=== PATIENT | male | born 1985 | race Caucasian/White ===

== ENCOUNTER 2021-08-11 13:41 | Emergency (ER) | payer SELFPAY ==
--- OUTSIDE RECORDS SUMMARY | 2021-08-11 13:46 | XMS REPORT | Continuity of Care Document ---
:1985 Author Organization [facility] t Address [address] Kapoor [address] [place] [address] Care Team Providers Name Role Phone Pcp, Does Not Have A Primary Care Physician Arcelia Attending Clinician Unavailable Karl Krueger Attending Clinician Unavailable Neelam Belcher MD Attending Clinician Chari Jose Attending Clinician Unavailable RICKEY Attending Clinician Unavailable Erik BOATENG Attending Clinician Kamilah BOATENG Attending Clinician NEELAM BELCHER Attending Clinician Unavailable Rickey BOATENG Attending Clinician Nate Attending Clinician Unavailable Physician, Primary or Family Admitting Clinician UnavailKarl Marsh Admitting Clinician Unavailable Jasbir Stiles Admitting Clinician Unavailable Payers Payer Name Policy Type Policy Number Effective Date Expiration Date S ource Problems Condition Condition Condition Status Onset Resolution Last Treating Co mments Source Name Details Category Date Date Treatment Clinician Date No known No known Disease Unive rs active active ity of problems problems [facility] Allergies, Adverse Reactions, Alerts Allergy Allergy Status Severity Reaction(s) Onset Inactive Treating Comm ents Source Name Type Date Date Clinician lisinopr DA Active SV 2020-0 [facility] il 4-02 Clear 00:00: [place] 00 [facility] isosorbi DA Active SV 2020-0 [facility] de 4-02 Clear 00:00: [place] 00 [facility] lisinopr DA Active SV COUGH 1-0 [facility] il 4-02 Clear 00:00: [place] 00 [facility] isosorbi DA Active SV AGITATION 1-0 [facility] de 4-02 Clear 00:00: [place] 00 [facility] ranolazi DA Active [place] HEADACHE 2020-0 [facility] ne 4-02 Clear 00:00: [place] 00 [facility] ranolazi DA Active WA 1-0 [facility] ne 4-02 Clear 00:00: [place] 00 [facility] lisinopr DA Active SV 2020-0 [facility] il 3-15 Clear 00:00: [place] 00 [facility] isosorbi DA Active SV 2020-0 [facility] de 3-15 Clear 00:00: [place] 00 [facility] ranolazi DA Active WA 2020-0 [facility] ne 3-15 Clear 00:00: [place] 00 [facility] lisinopr DA Active SV COUGH 2020-0 [facility] il 3-15 Clear 00:00: [place] 00 [facility] isosorbi DA Active SV AGITATION 2020-0 [facility] de 3-15 Clear 00:00: [place] 00 [facility] ranolazi DA Active [place] HEADACHE 2020-0 [facility] ne 3-15 Clear 00:00: [place] 00 [facility] Isosorbi Propensi Active Unknown - 2020-0 Patient Un sujit de ty to See comments 2-18 states he i ty of Mononitr adverse 00:00: has side [place] ate reaction 00 effects Medical s and cant Branch take medicatio n but didn't specify what side effects Lisinopr Propensi Active Cough 2020-0 Univer s il ty to 2-18 ity of adverse 00:00: [place] reaction 00 Medical s Branch Ranolazi Propensi Active Unknown - 2020-0 agitated U nivers ne ty to See comments 2-18 ity of adverse 00:00: [place] reaction 00 Medical s Branch ISOSORBI DRUG Active Unknown-Cmnt 2020-0 Un sujit DE INGREDI 2-18 ity of MONONITR 00:00: [place] ATE 00 Medical Branch LISINOPR DRUG Active COUGH 2020-0 Univers [place] INGREDI 2-18 ity of 00:00: [place] 00 Medical Branch RANOLAZI DRUG Active Unknown-Cmnt 2020-0 Un sujit NE INGREDI 2-18 ity of 00:00: [place] 00 Medical Branch lisinopr DA Active SV 2020-0 [facility] il 2-02 [place] 00:[facility]: e [facility] isosorbi DA Active SV 2020-0 [facility] de 2- [place] 00:00: e [facility] ranolazi DA Active [place] 2020-0 [facility] ne 2 [place] 00:00: e 00 [facility] lisinopr DA Active SV COUGH 2020-0 [facility] il - [place] 00:00: e 00 [facility] isosorbi DA Active SV AGITATION 2020-0 [facility] de 2 [place] 00:00: e 00 [facility] ranolazi DA Active [place] HEADACHE 2020-0 [facility] ne 04-11 [place] 00:00: e 00 [facility] Social History Social Habit Start Date Stop Date Quantity Comments Source Sex Assigned At [birth year] [facility] 00:00:00 00:00:00 Medical [place] Smoking Status Start Date Stop Date Source Unknown if ever smoked [facility] Medications Ordered Filled Start Stop Current Ordering Indication Dosage Frequency Signature Comments Components Source Medication Medication Date Date Medication? Clinician (SIG) Name Name hydrOXYzine 2020-0 Yes [id number] 25mg Take 1 Univers 25 mg 4-26 tablet by ity of tablet 00:00: mouth [place] 00 every 8 Medical (eight) Branch hours as needed for Itching. hydrOXYzine 0 Yes [id number] 25mg Take 1 Univers 25 mg 4-26 tablet by ity of tablet 00:00: mouth [place] 00 every 8 Medical (eight) Branch hours as needed for Itching. hydrOXYzine 2020-0 Yes [id number] 25mg Take 1 Univers 25 mg 4-26 tablet by ity of tablet 00:00: mouth [place] 00 every 8 Medical (eight) Branch hours as needed for Itching. Ustekinumab 2020-0 Yes 45mg inject 0.5 Univers 45 mg/0.5 3-08 mL under ity of mL SC 00:00: the skin [place] injection 00 every 12 Medica l (twelve) Branch weeks. Ustekinumab 2021-0 Yes 45mg inject 0.5 Univers 45 mg/0.5 3-08 mL under ity of mL SC 00:00: the skin [place] injection 00 every 12 Medica l (twelve) Branch weeks. Ustekinumab 2021-0 Yes 45mg inject 0.5 Univers 45 mg/0.5 3-08 mL under ity of mL SC 00:00: the skin [place] injection 00 every 12 Medica l (twelve) Branch weeks. clobetasoL 2021-0 Yes [id number] Apply to Univers 0.05 % 1-26 area(s) 2 ity of cream 00:00: (two) [place] 00 times Medical daily. Branch clobetasoL 2021-0 Yes [id number] Apply to Univers 0.05 % 1-26 area(s) 2 ity of external 00:00: (two) [place] solution 00 times Medical daily. Branch clobetasoL 2021-0 Yes [id number] Apply to Univers 0.05 % 1-26 area(s) 2 ity of cream 00:00: (two) [place] 00 times Medical daily. Branch clobetasoL 2021-0 Yes [id number] Apply to Univers 0.05 % 1-26 area(s) 2 ity of external 00:00: (two) [place] solution 00 times Medical daily. Branch clobetasoL 2021-0 Yes [id number] Apply to Univers 0.05 % 1-26 area(s) 2 ity of cream 00:00: (two) [place] 00 times Medical daily. Branch clobetasoL 2021-0 Yes [id number] Apply to Univers 0.05 % 1-26 area(s) 2 ity of external 00:00: (two) [place] solution 00 times Medical daily. Branch metoprolol 2020-0 Yes 25mg Take 25 mg U nivers succinate 8-21 by mouth ity of XL 25 mg 24 14:19: daily. [facility] hr tablet Medical Branch amLODIPine 2019-0 Yes 5mg Take 5 mg Un sujit 5 mg tablet 8-21 by mouth ity of 14:19: daily. [place] [address] Medical Branch clopidogreL 2020-0 Yes 75mg Take 75 mg Univers (PLAVIX) 75 8-21 by mouth ity of mg tablet 14:19: daily. [place] [address] Medical Branch aspirin 2019-0 Yes 81mg Take 81 mg Univ ers (LO-DOSE 8-21 by mouth ity of ASPIRIN) 81 14:19: daily. [place] mg EC 57 Medical tablet Branch omeprazole 2020-0 Yes 20mg Take 20 mg U nivers 20 mg 8-21 by mouth ity of capsule 14:19: daily. [place] [address] Medical Branch topiramate 2020-0 Yes 50mg Take 50 mg U nivers (TOPAMAX) 8-21 by mouth 2 ity of 50 mg 14:19: (two) [place] tablet 57 times Medical daily. Branch atorvastati 2020-0 Yes 80mg Take 80 mg Univers n 80 mg 8-21 by mouth ity of tablet 14:19: at [place] [address] bedtime. Medical Branch metoprolol 2020-0 Yes 25mg Take 25 mg U nivers succinate 8-21 by mouth ity of XL 25 mg 24 14:19: [place]. [place] hr tablet 57 [facility] amLODIPine 2020-0 Yes 5mg Take 5 mg Un sujit 5 mg tablet 8-21 by mouth ity of 14:19: daily. [place] [address] Medical Branch clopidogreL 2020-0 Yes 75mg Take 75 mg Univers (PLAVIX) 75 8-21 by mouth ity of mg tablet 14:19: daily. [place] [address] Medical Branch aspirin 2020-0 Yes 81mg Take 81 mg Univ ers (LO-DOSE 8-21 by mouth ity of ASPIRIN) 81 14:19: daily. [place] mg EC 57 Medical tablet Branch omeprazole 2020-0 Yes 20mg Take 20 mg U nivers 20 mg 8-21 by mouth ity of capsule 14:19: daily. [place] [address] Medical Branch topiramate 2020-0 Yes 50mg Take 50 mg U nivers (TOPAMAX) 8-21 by mouth 2 ity of 50 mg 14:19: (two) [place] tablet 57 times Medical daily. Branch atorvastati 2020-0 Yes 80mg Take 80 mg Univers n 80 mg 8-21 by mouth ity of tablet 14:19: at [place] [address] bedtime. Medical Branch metoprolol 2020-0 Yes 25mg Take 25 mg U nivers succinate 8-21 by mouth ity of XL 25 mg 24 14:19: daily. [place] hr tablet 57 [place] amLODIPine 2020-0 Yes 5mg Take 5 mg Un sujit 5 mg tablet 8-21 by mouth ity of 14:19: daily. [place] [address] Medical Branch clopidogreL 2020-0 Yes 75mg Take 75 mg Univers (PLAVIX) 75 8-21 by mouth ity of mg tablet 14:19: daily. [place] [address] Medical Branch aspirin 2020-0 Yes 81mg Take 81 mg Univ ers (LO-DOSE 8-21 by mouth ity of ASPIRIN) 81 14:19: [place]. [place] mg 57 [place] tablet Branch omeprazole 2020-0 Yes 20mg Take 20 mg U nivers 20 mg 8-21 by mouth ity of capsule 14:19: daily. [place] [address] Medical Branch topiramate 2020-0 Yes 50mg Take 50 mg U nivers (TOPAMAX) 8-21 by mouth 2 ity of 50 mg 14:19: (two) [place] tablet 57 times Medical daily. Branch atorvastati 2019-0 Yes 80mg Take 80 mg Univers n 80 mg 8-21 by mouth ity of tablet 14:19: at [place] [address] bedtime. Medical Branch Procedures Procedure Date / Time Performed Performing Clinician [facility] samantha [id number] 2019-05-23 00:00:00 BALPA [facility] [id number] 2019-04-16 00:00:00 PATSN [facility] [id number] 2019-04-16 00:00:00 PATSN [facility] [id number] 2019-04-16 00:00:00 PATSN [facility] [id number] 2019-04-16 00:00:00 [facility] Encounters Start End Encounter Admission Attending Care Care Encounter Source Date/Time Date/Time Type Type Clinicians Facility Department ID 2020-07-07 Inpatient EL Crist[facility] [id number] [facility] 12:30:00 [id number] [facility] 2020-07-06 Inpatient Cristian Paniagua [facility] DAYS [id number] [facility] 12:30:00 [id number] [facility] 2020-06-26 Inpatient Cristian [facility]aniagua [facility] RADI [id number] [facility] 10:00:00 [id number] [facility] 2020-06-09 Inpatient HCABM SARAN [id number] [facility] 21:32:00 [id number] [facility] 2019-05-23 Inpatient HCABM SARAN [id number] [facility] 21:44:00 [id number] [facility] 2019-04-11 Inpatient UR Pati, MARYAN [facility] [id number] [facility] 21:42:00 Lesa [facility] 2021-07-25 2021-07-25 Telephone Rosa Belcher [facility] [id number] Univers 00:00:00 00:00:00 Neelam MULTISPEC [id number] ity [id number] [id number] [facility] [address] [facility] 2021-05-29 2021-05-29 Telephone Rosa Belcher [facility] [id number] [facility] 00:00:00 00:00:00 Neelam MULTISPEC [id number] it[id number] [id number] [facility] AND [address] [facility] 2021-04-13 2021-04-13 Refill Rosa Belcher [facility] [id number] Univers 00:00:00 00:00:00 Neelam MULTISPEC [id number] it[id number] [id number] [facility] AND [address] [facility] 2021-01-12 2021-01-12 Emergency EM DALLIN Jose [facility] [id number] [facility] 15:37:00 18:11:[id number] [facility] 2021-01-12 2021-01-12 Emergency EM DALLIN Jose [facility] [id number] [facility] 15:37:00 18:11:[address] [facility] 2020-09-26 2020-09-26 Outpatient Jamshid LANG [facility] [id number] Univers 11:15:00 11:15:00 ANNEMARIE [id number] luther [facility] 2020-09-26 2020-09-26 Outpatient Jamshid LANG [facility] [id number] Univers 11:15:00 11:15:00 ANNEMARIE luther [facility] 2020-07-03 2020-07-03 Outpatient Cristian Paniagua HCACL LABO [id number] [facility] 19:57:00 19:57:00 [id number] [facility] 2020-07-03 2020-07-03 Outpatient EL Cristian Paniagua HCABM OPLA [id number] [facility] 10:30:00 10:30:00 [id number] [facility] 2020-06-28 2020-06-28 Yony Valencia [facility] [id number] 00:00:00 00:00:00 Kane DUARTEPEC [id number] IALTY [id number] [place] [id number] [place] 2020-05-15 2020-05-15 Telephone Rosa Belcher [facility] [id number] 00:00:00 00:00:00 Neelam DUARTEPEC [id number] IAL[place] [id number] [place] [id number] [facility] 2020-04-04 2020-04-04 Office Kamilah [facility] [id number] 11:27:57 11:42:56 Visit Grace DUARTEPEC [id number] [place] [id number] [place] [id number] [facility] [place] 2020-04-04 2020-04-04 Outpatient R [facility] [id number] Univers 11:15:00 11:15:00 [id number] [facility] 2020-04-04 2020-04-04 Outpatient R ROSA BELCHER [facility] [id number] Univers 11:15:00 11:15:00 [facility] 2020-02-25 2020-02-25 Yony Lang [facility] [id number] 00:00:00 00:00:00 Annemarie DUARTEPEC [id number] [place] [id number] [place] [id number] [facility] [place] 2020-02-25 2020-02-25 Telephone LALY Lang [id number] 00:00:00 00:00:00 Annemarie [facility] [id number] [place] [id number] 2020-01-24 2020-01-24 Outpatient R RICKEY, [facility] [id number] Univers 15:15:00 15:15:00 ANNEMARIE [id number] itberta o [facility] 2020-01-24 2020-01-24 Outpatient R RICKEY [facility] [id number] Univers 15:15:00 15:15:00 ANNEMARIE itberta o [facility] 2019-11-01 2019-11-01 Outpatient R [facility] [id number] Univers 14:45:00 14:45:00 [id number] ity [facility] 2019-10-29 2019-10-29 Outpatient R RICKEY [facility] [id number] Univers 16:00:00 16:00:00 ANNEMARIE theodore o [facility] 2019-10-29 2019-10-29 Outpatient R RICKEY, [facility] [id number] Univers 14:15:00 14:15:00 ANNEMARIE [id number] itberta o [facility] 2019-10-29 2019-10-29 Outpatient R RICKEY [facility] [id number] Univers 14:15:00 14:15:00 ANNEMARIE theodore o [facility] 2019-07-27 2019-07-27 Outpatient Jamshid LANG [facility] [id number] Univers 09:40:00 09:40:00 ANNEMARIE [id number] ity o [facility] 2019-07-27 2019-07-27 Outpatient R RICKEY [facility] [id number] Univers 09:40:00 09:40:00 ANNEMARIE itberta o [facility] 2019-05-24 2019-05-24 Outpatient HOSSEIN SlulivanHEATHER LABKerwin [id number] [facility] 15:40:00 15:40:00 Doug [id number] [facility] Results Test Description Test Time Test Comments Results Result Comments Source Novel Coronavirus 20182020-07-04 22:41:00 Test Item Value Reference Range Interpretation Comme nts Novel Coronavirus 2019 Negative Negative Posit summer results are indicative of the Inhouse (test code = presenc e [id number]-ByM-3 RNA, clinical [id number]) correlation wit h patient historyand other diagnosti c information is necessary to de terminepatient infection status. Positiv e results do not rule outbacterial in fection or co-infection with other viru ses. Negative results do not preclude SA RS-CoV-2 infection andshould not b e used as the sole basis for patient man agementdecisions. Negative result s must be combined with otherclinical o bservations, patient history, and ep idemiologicalinformation. Detection of SA RS-CoV-2 RNA may be affected bysamp le collection methods, storage conditi ons, and/or stageof infection. Renita l RNA mutations, vaccinations, a ntiviraltherapeutics, antibiotics, ch emotherapeutic orimmunosuppres lupillo drugs have not been evaluated for e ffectson detection. Results are for the identification of SARS-CoV-2 RNA usingreal-time (RT) polymerase gaurav n reaction (PCR) technologyfor t he qualitative detection of nucleic acid s from yhsOSFR-PrW-4 virus and diagn osis of SARS-CoV-2 virusinfection. It is an Emergency Use Authorization ( EUA) testauthorized by the U.S. FDA. Novel Coronavirus [id number] 22:40:00 Test Item Value Reference Range Interpretation Comments Novel Coronavirus Negative Negative Positive r esults are 2019 Inhouse (test indicativ e of the presence code = [id number]) ofSARS-CoV -2 RNA, clinical correlation wit h patient historyand othe r diagnostic info rmation is necessary to determinepatien t infection status. Positiv e results do not rule out bacterial infection or co -infection with other viru ses. Negative result s do not preclude SARS-C oV-2 infection andsh ould not be used as the kallie e basis for patient managementdecis ions. Negative result s must be combined with otherclinical observations, p atient history, and epidemiological information . Detection of SARS-CoV-2 RNA may be affe cted bysample collec tion methods, storag e conditions, and /or stageof infection. Renita l RNA mutations, vacc inations, antiviraltherap eutics, antibiotics, chemotherapeuti c orimmunosuppres lupillo drugs have not been e valuated for effectson d etection. Results are for the identification of SARS-CoV-2 RNA usingreal-time (RT) polymerase gaurav n reaction (PCR) technolog yfor the qualitative det ection of nucleic acids f rom ijtFYJB-GsT-3 v irus and diagnosis of SA RS-CoV-2 virusinfection. It is an Emergency Use Authorization ( EUA) testauthorized by the U.S. FDA. CBC W/AUTO [id number] 23:36:00 Test Item Value Reference Range Interpretation Comments WHITE BLOOD CELL (test code = 10.5 K/mm3 4.5-12.5 N WBC) RED BLOOD CELL (test code = 4.74 mill/mm3 4.0-5.8 N RBC) HEMOGLOBIN (test code = HGB) 14.7 gram/dL 13.0-17.5 N HEMATOCRIT (test code = HCT) 46.4 % 42.0-52.0 N MEAN CELL VOLUME (test code = 97.9 fL 80-98 N MCV) MEAN CELL HGB (test code = MCH) 31.0 picogram 27.0-33.0 N MEAN CELL HGB CONCETRATION 31.7 gram/dL 33.0-36.0 L (test code = MCHC) RED CELL DISTRIBUTION WIDTH 14.1 % 11.6-16.2 N (test code = RDW) RED CELL DISTRIBUTION WIDTH SD 51.0 fL 37.0-51.0 N (test code = RDW-SD) PLATELET COUNT (test code = 322 K/mm3 150-450 N PLT) MEAN PLATELET VOLUME (test code 11.0 fL 6.7-11.0 N = MPV) NEUTROPHIL % (test code = NT%) 72.9 % 39.0-69.0 H IMMATURE GRANULOCYTE % (test 0.3 % 0.0-5.0 N code = IG%) LYMPHOCYTE % (test code = LY%) 17.7 % 25.0-55.0 L MONOCYTE % (test code = MO%) 7.5 % 0.0-10.0 N EOSINOPHIL % (test code = EO%) 0.8 % 0.0-5.0 N BASOPHIL % (test code = BA%) 0.8 % 0.0-1.0 N NUCLEATED RBC % (test code = 0.0 % 0-0 N NRBC%) NEUTROPHIL # (test code = NT#) 7.64 K/mm3 1.8-7.7 N IMMATURE GRANULOCYTE # (test 0.03 x10 3/uL 0-0.03 N code = IG#) LYMPHOCYTE # (test code = LY#) 1.85 K/mm3 1.0-5.0 N MONOCYTE # (test code = MO#) 0.79 K/mm3 0-0.8 N EOSINOPHIL # (test code = EO#) 0.08 K/mm3 0.0-0.5 N BASOPHIL # (test code = BA#) 0.08 K/mm3 0.0-0.2 N NUCLEATED RBC # (test code = 0.00 K/mm3 0.0-0.1 N NRBC#) BASIC METABOLIC [id number] 15:09:00 Test Item Value Reference Range Interpretation Comments SODIUM (test code = 138 mmol/L 136-145 N NA) POTASSIUM (test code 4.2 mmol/L 3.5-5.1 N = K) CHLORIDE (test code 108.0 mmol/L 98-107 H = CL) CARBON DIOXIDE (test 27.0 mmol/L 21-32 N code = CO2) ANION GAP (test code 7.2 10-20 L = GAP) GLUCOSE (test code = 102 mg/dL 74-106 N GLU) BLOOD UREA NITROGEN 14 mg/dL 7-18 N (test code = BUN) GLOMERULAR > 60 mL/min See_Comment Estimated GFR b y FILTRATION RATE using Modifi ed MDRD (test code = GFR) formula.Ch ronic kidney disease is defined as eith er kidney damageor GFR <60 mL/min/1.73 m2 for >3 months. [Automated mess age] The system Need Fixed generated this result transmitted ref erence range: >=60. Th e reference range was not used to int erpret this result as normal/abnormal . CREATININE (test 1.00 mg/dL 0.7-1.3 N code = CREAT) BUN/CREATININE RATIO 13.7 10-20 N (test code = BUN/CREA) CALCIUM (test code = 8.4 mg/dL 8.5-10.1 L CA) - XR [id number] 11:12:00 [facility]Name: NAIF MAGANA : 1985 Sex: M FAX: Cristian Lira MD [phone] [place]: B St: PRE-------- Name: NAIF MAGANA [facility] : 1985 Age/S: 35/M [address] [facility] Unit #: [id number] Loc: [place] [address] Phys: Cristian Davidson MD Acct: [id number] Dis Date: Status: PRE [facility] PHONE #: [phone] Exam Date: 06/26/2020 1011 FAX #: [phone] Reason: GERD EXAMS: CPT CODE: [id number] XR ESOPHAGUS [id number] HISTORY: Gastroesophageal reflux disease. COMPARISON: None available. Location: [facility]. Esophagus distended well. Free passage of contrast through the esophagus. No obstructing or constricting lesions are noted. Free passage through the GE junction. No reflux is noted. No esophagitis is noted. The visualized stomach is unremarkable. Barium tablet was administered as well with free passage without obstruction through the esophagus and through the GE junction. Incidental note made of calcified right coronary artery. IMPRESSION: No obstructing or constricting lesions. Free passage of barium and barium tablet through the esophagus and through the GE junction without esophagitis. Incidental note made of a calcified right coronary artery. Cardiac evaluation wouldbe of value. Fluoroscopy time utilized was 1 minute and 22 images were obtained during the examination. [id number] Reported and signed by: Shaka Marks M.D. CC: Cristian Paniagua MD Technologist: RT Harley(R) Trnscrd Date/Time/By: 06/26/2020 (1112) : By: [email or web address] Orig Print D/T: S: 06/26/2020 (1119) PAGE 1 Signed Report- XR [id number] 11:12:00 [facility] 1985 Sex: M FAX: Cristian Lira MD [phone] [place]: B St: DEP-------- Name: NAIF MAGANA [facility] : 1985 Age/S: 35/M [facility]anna [facility] Unit #: [id number] Loc: [place] [address] Phys: Cristian Davidson MD Acct: [id number] Dis Date: Status: DEP CLI PHONE #: [phone] Exam Date: 06/26/2020 1011 FAX #: [phone] Reason: GERD EXAMS: CPT CODE: [id number] XR ESOPHAGUS 65354 HISTORY: Gastroesophageal reflux disease. COMPARISON: None available. Location: [facility]. Esophagus distended well. Free passage of contrast through the esophagus. No obstructing or constricting lesions are noted. Free passage through the GE junction. No reflux is noted. No esophagitis is noted. The visualized stomach is unremarkable. Barium tablet was administered as well with free passage without obstruction through the esophagus and through the GE junction. Incidental note made of calcified right coronary artery. IMPRESSION: No obstructing or constricting lesions. Free passage of barium and barium tablet through the esophagus and through the GE junction without esophagitis. Incidental note made of a calcified right coronary artery. Cardiac evaluation wouldbe of value. Fluoroscopy time utilized was 1 minute and 22 images were obtained during the examination. [id number] Reported and signed by: Shaka Marks M.D. CC: Cristian Paniagua MD Technologist: RT Harley(Jamshid) Trnscrd Date/Time/By: 06/26/2020 (1112) : By: [email or web address] Orig Print D/T: S: 06/26/2020 (1115) PAGE 1 Signed Report- CT ABD PELVIS [id number] 00:34:00 [facility]Name: NAIF MAGANA : 1985 Sex: M Name: NAIF MAGANA [facility] : 1985 Age/S: 35 / M [address] Unit #: [id number] Loc: [place] [address] Phys: Mary Gill MD Acct: [id number] Dis Date: Status: REG ER PHONE #: [phone] Exam Date: 06/10/202023 FAX #: [phone] Reason: epigastric ttp EXAMS: CPT CODE: [id number] CT ABD PELVIS W/CONT 39580 EXAM: - CT ABD PELVIS W/CONT INDICATION: 35 years -old Male with epigastric ttp TECHNIQUE: Contrast - IV contrast was given. No oral contrast was given Portal venous phase - abdomen and pelvis No delayed phase images were obtained. Reconstructions - coronal and sagittal planes Automated exposure reduction (Auto mA/Smart mA) was utilized in compliance with ACR Image Wisely COMPARISON: None FINDINGS: Statements: None. Thoracic: Included images of the lower chest demonstrate no abnormalities. Hepatobiliary: The liver is normal without focal lesion.Gallbladder is partially contracted limiting evaluation. No biliary dilation. Pancreas: Normal. Spleen: Normal. Adrenals: Normal. Genitourinary: The kidneys are normal. No evidence of hydronephrosis. Evaluation of the bladder is limited, but no obvious bladder abnormality is present. Gastrointestinal: No bowel obstruction or perienteric inflammation. The appendix is normal. Vascular: Atherosclerotic calcifications are seen within the aorta and branch vessels. Roge lópez/Soft Tissues: No acute osseous findings. No ventral hernias. Peritoneum/Other: No extraluminal fluid. PAGE 1 Signed Report (CONTINUED) Name: NAIF MAGANA [facility] : 1985 Age/S: 35 / M [address] Unit #: [id number] Loc: [place] [address] Phys: [facility] Gill [id number] Dis Date: Status: REG ER PHONE #: [phone] Exam Date: 06/10/202023 FAX #: [phone] Reason: epigastric ttp EXAMS: CPT CODE: [id number] CT ABD PELVIS W/CONT 17222 <Continued> IMPRESSION: 1. Evidence of bowel obstruction. No free air or abscess. No acute inflammatory process. at 0034 Reported and signed by: Brad Gallagher MD CC: Mary Gill MD Technologist:Guillaume Silver, RT(R)(CT) CTDI: DLP: Trnscb Date/Time: 06/10/2020 (33) [email or web address] Orig Print D/T: S: 06/10/2020 (7) PAGE 2 Signed ReportB-TYPE NATRIURETIC [id number] 23:34:00 Test Item Value Reference Range Interpretation Comments B-TYPE NATRIURETIC PEPTIDE (test 8.1 pgram/mL 0-100 N code = BNP) BASIC METABOLIC [id number] 23:34:00 Test Item Value Reference Range Interpretation Comments SODIUM (test code = 141 mmol/L 136-145 N NA) POTASSIUM (test code 3.8 mmol/L 3.5-5.1 N = K) CHLORIDE (test code 108.0 mmol/L 98-107 H = CL) CARBON DIOXIDE (test 25.0 mmol/L 21-32 N code = CO2) ANION GAP (test code 11.8 10-20 N = GAP) GLUCOSE (test code = 116 mg/dL 74-106 H GLU) BLOOD UREA NITROGEN 13 mg/dL 7-18 N (test code = BUN) GLOMERULAR > 60 mL/min See_Comment Estimated GFR b y FILTRATION RATE using Modifi ed MDRD (test code = GFR) formula.Ch ronic kidney disease is defined as eith er kidney damageor GFR <60 mL/min/1.73 m2 for >3 months. [Automated mess age] The system Need Fixed generated this result transmitted ref erence range: >=60. Th e reference range was not used to int erpret this result as normal/abnormal . CREATININE (test 1.10 mg/dL 0.7-1.3 N code = CREAT) BUN/CREATININE RATIO 11.8 10-20 N (test code = BUN/CREA) CALCIUM (test code = 9.9 mg/dL 8.5-10.1 N CA) HEPATIC FUNCTION [id number] 23:34:00 Test Item Value Reference Range Interpretation Comments TOTAL PROTEIN (test 7.7 gram/dL 6.4-8.2 N code = PROT) ALBUMIN (test code = 4.6 g/dL 3.4-5.0 N ALB) GLOBULIN (test code = 3.1 gram/dL 2.7-4.2 N GLOB) ALBUMIN/GLOBULIN RATIO 1.5 0.75-1.50 N (test code = A/G) BILIRUBIN TOTAL (test 0.40 mg/dL 0.0-1.0 N code = BILT) BILIRUBIN DIRECT (test < 0.10 mg/dL 0.0-0.20 N code = BILD) SGOT/AST (test code = 16 IUnit/L 15-37 N AST) SGPT/ALT (test code = 24 IUnit/L 12-78 N ALT) ALKALINE PHOSPHATASE 169 IUnit/L 45-117 H Note change in TOTAL (test code = reference range due ALKP) to change in reagent. [id number] 23:34:00 Test Item Value Reference Range Interpretation Comments LIPASE (test code = LIP) 42 U/L 12-57 N [id number] 23:34:00 Test Item Value Reference Range Interpretation Comments MAGNESIUM (test code = MAG) 2.1 mg/dL 1.8-2.4 N [id number] 23:34:00 Test Item Value Reference Range Interpretation Comments TROPONIN-I (test code = TROPI) < 0.006 ng/mL 0-0.045 N CBC W/O [id number] 23:21:00 Test Item Value Reference Range Interpretation Comments WHITE BLOOD CELL (test code = 11.3 K/mm3 4.5-12.5 N WBC) RED BLOOD CELL (test code = 4.80 mill/mm3 4.0-5.8 N RBC) HEMOGLOBIN (test code = HGB) 14.8 gram/dL 13.0-17.5 N HEMATOCRIT (test code = HCT) 45.2 % 42.0-52.0 N MEAN CELL VOLUME (test code = 94.2 fL 80-98 N MCV) MEAN CELL HGB (test code = MCH) 30.8 picogram 27.0-33.0 N MEAN CELL HGB CONCETRATION 32.7 gram/dL 33.0-36.0 L (test code = MCHC) RED CELL DISTRIBUTION WIDTH 13.7 % 11.6-16.2 N (test code = RDW) PLATELET COUNT (test code = 364 K/mm3 150-450 N PLT) MEAN PLATELET VOLUME (test code 10.7 fL 6.7-11.0 N = MPV) URINALYSIS [id number] 23:16:00 Test Item Value Reference Range Interpretation Comments UA COLOR (test code = COLU) Light-Yellow YELLOW UA APPEARANCE (test code = CLEAR CLEAR APPU) UA GLUCOSE DIPSTICK (test NEGATIVE mg/dL NEGATIVE code = DGLUU) UA BILIRUBIN DIPSTICK (test NEGATIVE mg/dL NEGATIVE code = BILU) UA KETONE DIPSTICK (test NEGATIVE mg/dL NEGATIVE code = KETU) UA SPECIFIC GRAVITY (test 1.020 1.001-1.035 code = SGU) UA BLOOD DIPSTICK (test Negative mg/dL NEGATIVE code = OZZY) UA PH DIPSTICK (test code = 7.0 5.0-8.0 ESHA) UA PROTEIN DIPSTICK (test NEGATIVE mg/dL NEGATIVE code = PROU) UA UROBILINIOGEN DIPSTICK Normal mg/dL NEGATIVE (test code = URO) UA NITRITE DIPSTICK (test NEGATIVE NEGATIVE code = ROCK) UA LEUKOCYTE ESTERASE W NEGATIVE Rosemary/uL NEGATIVE REFLEX (test code = LEUUR) UA WBC (test code = WBCU) 0-5 per HPF 0-5 UA RBC (test code = RBCU) 0-2 #/HPF 0-5 UA EPITHELIAL CELLS (test None seen per HPF FEW code = EPIU) UA BACTERIA (test code = NONE SEEN #/HPF NONE BACU) UA MUCUS (test code = MUCU) FEW #/LPF FEW UA AMORPHOUS SEDIMENT (test FEW #/LPF code = AMORU) Urine Source? Clean Catch- XR CHEST 1 [id number] 22:02:00 [facility] ([facility])Name: NAIF MAGANA : 1985 Sex: M FAX: Mary Avila [phone] [place]: St: REG-------- Name: NAIF MAGANA [facility] : 1985 Age/S: 35/M [address] [facility] Unit #: [id number] Loc: [place] [address] Phys: Mary Sanchez MD Acct: [id number] Dis Date: Status: REG ER PHONE #: [phone] Exam Date: 06/09/20202158 FAX #: [phone] Reason: CHEST PAIN EXAMS: CPT CODE: [id number] XR CHEST 1 V 83457 EXAM: Chest X-ray, 1 view; CLINICAL HISTORY: Chest pain; FINDINGS: The lungs are clear, no infiltrates, no edema; no effusions; no pneumothorax; normal cardiomediastinal silhouette. No significant change compared with a study from May 24, 2019; right coronary artery stent in place. IMPRESSION: No evidence of active cardiopulmonary disease. Location code: [facility] at 2201 Reported and signed by: Monty Byers M.D. CC: Mary Gill MD Technologist: RT Yaima(R Trnscrd Date/Time/By: 06/09/2020 (2201) : By: Benny Orig Print D/T: S: 06/09/2020 (2205) PAGE 1 Signed ReportANTI PHOSPHOLIPID [id number] 09:31:00 Test Item Value Reference Interpretation Comments Range PTT ACTIVATED 25.2 sec () This test has not been (test code = validated for APTT) monitoringunfra ctionated heparin therapy . aPTT-based therapeuticrang es for unfractionated heparin therapy have no t beenestablished . Consider ordering Hepari n anti-Xa(unfract ionated).Refer ence Range:18 y ears and older: 22.9 - 3 0.2 RVVT PATIENT 1.4 ratio () H Testing while t he patient is (test code = on anticoagulan t RVVTPAT) therapy,includi ng warfarin, dabigatran, or a direct Xa inhibitor mayca use a false positive result .Reference Range: 0.8 - 1.2 --DRVVT Screen Seconds: 48.4 H igh secReference Ra nge: <= 47.0 DRVVT Confirm S econds: 33.8 secDRVVT Ratio: 1.4 High ratioTesting wh ile the patient is on a nticoagulant therapy,includi ng warfarin, dabigatran, or a direct Xa inhibitor mayca use a false positive result .Reference Range: 0.8 - 1.2 --------Hexago nal Phospholipi d Neutral: 0 secThis value i s NEGATIVE.This i s a qualitative ass ay and is therefore repor ceasar aspositive for lupus antic oagulant or negative. Thequ antitative value is provid ed as an aid in diagnosis.Re ference Range: 0 - 11 P latelet Neutralization: 0.0 secReference Ra nge: 0.0 - 3.0This test wa s developed and its perform ance characteristics determined by [facility]. It has not been cleared or appr ovedby the Food and Drug A dministration. PTT LONG ACTING seconds LAC Interpre tation:Results (test code = are interpreted as PTTLA) indeterminate f or the presenceof a edmar pus anticoagulant ( LA). Only one phospholipiddep endent assay showed evidence of confirmation, w ith theDRVVT ratio falling j ust above the reference inter chris. Thistest may be falsely positive if the sample is c ollectedwhile the patient is on warfarin, direct Xa inhib itor, ordirect thrombin inhibi tor therapy. Only persistent LA meetlaboratory diagnostic criteria for antiphospholipi dsyndrome. To confirm or refu te the presence of an LA and todetermine per sistence, repeat testing in 12 or more weeksis recomme nded. Ideally, repeat testing should be performedin the absence of anticoagulant t herapy. All ARTHUR-basedanti phospholipid antibodies eval uated are normal. Pleasec ontact [employer] Coagul ation if further clarifi cation isneeded. AB 13 G units () Reference Range :<21 ANTI-PROTHROMBIN IGG (test code = APTABIGG) APS ABS IGG 0 GPS () Reference Range :<16Low (test code = Positive: 16 - 30Moderate APSIGG) Positive: 31 - 50High Positive: >50 APS ABS IGM 1 MPS () Reference Range :<22Low (test code = Positive: 22 - 35Moderate APSIGM) Positive: 36 - 50High Positive: >50 RLFH-0-DIDDX I < 10 SMU () The reference interval IGM (test code = reflects a 3SD or 99th GPIIGM) percentileinter chris, which is thought to repr esent a potentiallyclin ically significant res ult in accordance with theInternationa l Consensus Statement on e classificationc riteria for definitive anti phospholipid syndrome (APS). JThromb Eixt0368;4:295- 306.Reference Range:Negative: <33 OXVH-9-LAOVZ I < 10 SGU () The reference interval IGG (test code = reflects a 3SD or 99th GPIIGG) percentileinter chris, which is thought to repr esent a potentiallyclin ically significant res ult in accordance with theInternationa l Consensus Statement on th e classificationc riteria for definitive anti phospholipid syndrome (APS). JThromb Hikp2456;4:295- 306.Reference Range:Negative: <21 SXJO-6-HOPBF I < 10 SHAYLA () The reference interval IGA (test code = reflects a 3SD or 99th GPIIGA) percentileinter chris.Reference Range:Negative: <26 AB CARDIOLIPIN <10 APL () Reference Ran ge:Negative: IGA (test code = <12Indeterm inate: 12 - 20Low CARDIOAAB) to medium posit summer: >20 - 80High positive : >80 AB CARDIOLIPIN <10 GPL () Reference Ran ge:Negative: IGG (test code = <15Indeterm inate: 15 - 20Low CARDIOGAB) to medium posit summer: >20 - 80High positive : >80 AB CARDIOLIPIN <10 MPL () Reference Ran ge:Negative: IGM (test code = <13Indeterm inate: 13 - 20Low CARDIOMAB) to medium posit summer: >20 - 80High positive : >80 PLASMAFACTOR V [id number] 09:31:00 Test Item Value Reference Range Interpretation Comments FACTOR V () Result: Negativ e (no mutation MUTATION (test found)Factor V Leiden is a code = FAC5M) specific mutat ion (R506Q) in thefactor V gen e that is associated with an increased risk ofvenous t hrombosis. Factor V Leiden is mor e resistant toinactivation by activated protein C. As a result, factor Vpersists in th e circulation leading to a mi ldhypercoagulable state. The Leid en mutation accounts for 90 %- 95% of APC resistance. Fac tor V Leiden has been reportedin patients with deep vein throm bosis, pulmonary embolus,central retinal vein occlusion, cere bral sinus thrombosisand h epatic vein thrombosis. Oth er risk factors to beconsidered in the workup for venous thro mbosis include [id number] muta tion in the factor II (prot hrombin) gene,protein S and C deficiency, and antithrombi n deficiencies.An ticardiolipin antibody and edmar pus anticoagulant analysismay be appropriate for certain patient s, as well ashomocysteine levels. Contact your local LabC orp forinformation on how to order additional test ing if desired.Methodo logy:DNA analysis of the Factor V gene was performed byall khalida-specific PCR. The diagnostic sensitivity andspecificity is >99% for both. Molecular-based testing ishighly accurate, but a s in any laboratory test , diagnosticerror s may occur. All test results mu st be combined withclinical in formation for the most accurate interpretation. This test was developed and i ts performance characteristics determined by [facility]. It has not been cleared or approvedby [facility] Food and Drug Administration. References:Yadira Massey (1995). Clin Lab Med 16:169-186.Carmen Copeland, MS, PhD, Deanne Ring, PhDPerformed At : [employer] [address] [place] [address] [id number] Joe Bird MD Ph: [phone] PLASMAANTI PHOSPHOLIPID [id number] 20:06:00 Test Item Value Reference Interpretation Comments Range PTT ACTIVATED 25.2 sec () This test has not been (test code = validated for APTT) monitoringunfra ctionated heparin therapy . aPTT-based therapeuticrang es for unfractionated heparin therapy have no t beenestablished . Consider ordering Hepari n anti-Xa(unfract ionated).Refer ence Range:18 y ears and older: 22.9 - 3 0.2 RVVT PATIENT 1.4 ratio () H Testing while t he patient is (test code = on anticoagulan t RVVTPAT) therapy,includi ng warfarin, dabigatran, or a direct Xa inhibitor mayca use a false positive result .Reference Range:0.8 - 1.2 PTT LONG ACTING seconds (test code = PTTLA) AB 13 G units () Reference Range :<21 ANTI-PROTHROMBIN IGG (test code = APTABIGG) APS ABS IGG 0 GPS () Reference Range :<16Low (test code = Positive: 16 - 30Moderate APSIGG) Positive: 31 - 50High Positive: >50 APS ABS IGM 1 MPS () Reference Range :<22Low (test code = Positive: 22 - 35Moderate APSIGM) Positive: 36 - 50High Positive: >50 QQCS-6-ILDFY I < 10 SMU () The reference interval IGM (test code = reflects a 3SD or 99th GPIIGM) percentileinter chris, which is thought to repr esent a potentiallyclin ically significant res ult in accordance with theInternationa l Consensus Statement on th e classificationc riteria for definitive anti phospholipid syndrome (APS). JThromb Wfqm1165;4:295- 306.Reference Range:Negative: <33 GECQ-1-MSQIN I < 10 SGU () The reference interval IGG (test code = reflects a 3SD or 99th GPIIGG) percentileinter chris, which is thought to repr esent a potentiallyclin ically significant res ult in accordance with theInternationa l Consensus Statement on e classificationc riteria for definitive anti phospholipid syndrome (APS). JThromb Olun6880;4:295- 306.Reference Range:Negative: <21 COXS-2-IGUKF I < 10 SHAYLA () The reference interval IGA (test code = reflects a 3SD or 99th GPIIGA) percentileinter chris.Reference Range:Negative: <26 AB CARDIOLIPIN <10 APL () Reference Ran ge:Negative: IGA (test code = <12Indeterm inate: 12 - 20Low CARDIOAAB) to medium posit summer: >20 - 80High positive : >80 AB CARDIOLIPIN <10 GPL () Reference Ran ge:Negative: IGG (test code = <15Indeterm inate: 15 - 20Low CARDIOGAB) to medium posit summer: >20 - 80High positive : >80 AB CARDIOLIPIN <10 MPL () Reference Ran ge:Negative: IGM (test code = <13Indeterm inate: 13 - 20Low CARDIOMAB) to medium posit summer: >20 - 80High positive : >80 PLASMAFACTOR V [id number] 20:06:00 Test Item Value Reference Range Interpretation Comments FACTOR V MUTATION (test code = FAC5M) PLASMAANTI PHOSPHOLIPID [id number] 20:06:00 Test Item Value Reference Interpretation Comments Range PTT ACTIVATED 25.2 sec () This test has not been (test code = validated for APTT) monitoringunfra ctionated heparin therapy . aPTT-based therapeuticrang es for unfractionated heparin therapy have no t beenestablished . Consider ordering Hepari n anti-Xa(unfract ionated).Refer ence Range:18 y ears and older: 22.9 - 3 0.2 RVVT PATIENT 1.4 ratio () H Testing while t he patient is (test code = on anticoagulan t RVVTPAT) therapy,includi ng warfarin, dabigatran, or a direct Xa inhibitor mayca use a false positive result .Reference Range:0.8 - 1.2 PTT LONG ACTING seconds (test code = PTTLA) AB 13 G units () Reference Range :<21 ANTI-PROTHROMBIN IGG (test code = APTABIGG) APS ABS IGG 0 GPS () Reference Range :<16Low (test code = Positive: 16 - 30Moderate APSIGG) Positive: 31 - 50High Positive: >50 APS ABS IGM 1 MPS () Reference Range :<22Low (test code = Positive: 22 - 35Moderate APSIGM) Positive: 36 - 50High Positive: >50 UBPT-7-WGRXF I < 10 SMU () The reference interval IGM (test code = reflects a 3SD or 99th GPIIGM) percentileinter chris, which is thought to repr esent a potentiallyclin ically significant res ult in accordance with theInternationa l Consensus Statement on th e classificationc riteria for definitive anti phospholipid syndrome (APS). JThromb Ivfy1576;4:295- 306.Reference Range:Negative: <33 BNUP-7-GSGCG I < 10 SGU () The reference interval IGG (test code = reflects a 3SD or 99th GPIIGG) percentileinter chris, which is thought to repr esent a potentiallyclin ically significant res ult in accordance with theInternationa l Consensus Statement on th e classificationc riteria for definitive anti phospholipid syndrome (APS). JThromb Bptf1995;4:295- 306.Reference Range:Negative: <21 YRCU-8-KZVZS I < 10 SHAYLA () The reference interval IGA (test code = reflects a 3SD or 99th GPIIGA) percentileinter chris.Reference Range:Negative: <26 AB CARDIOLIPIN <10 APL () Reference Ran ge:Negative: IGA (test code = <12Indeterm inate: 12 - 20Low CARDIOAAB) to medium posit summer: >20 - 80High positive : >80 AB CARDIOLIPIN <10 GPL () Reference Ran ge:Negative: IGG (test code = <15Indeterm inate: 15 - 20Low CARDIOGAB) to medium posit summer: >20 - 80High positive : >80 AB CARDIOLIPIN <10 MPL () Reference Ran ge:Negative: IGM (test code = <13Indeterm inate: 13 - 20Low CARDIOMAB) to medium posit summer: >20 - 80High positive : >80 PLASMAFACTOR V [id number] 20:06:00 Test Item Value Reference Range Interpretation Comments FACTOR V () Result: Negativ e (no mutation MUTATION (test found)Factor V Leiden is a code = FAC5M) specific mutat ion (R506Q) in thefactor V gen e that is associated with an increased risk ofvenous t hrombosis. Factor V Leiden is mor e resistant toinactivation by activated protein C. As a result, factor Vpersists in th e circulation leading to a mi ldhypercoagulable state. The Leid en mutation accounts for 90 %- 95% of APC resistance. Fac tor V Leiden has been reportedin patients with deep vein throm bosis, pulmonary embolus,central retinal vein occlusion, cere bral sinus thrombosisand h epatic vein thrombosis. Oth er risk factors to beconsidered in the workup for venous thro mbosis include [id number] muta tion in the factor II (prot hrombin) gene,protein S and C deficiency, and antithrombi n deficiencies.An ticardiolipin antibody and edmar pus anticoagulant analysismay be appropriate for certain patient s, as well ashomocysteine levels. Contact your local Lab[facility] orp forinformation on how to order additional test ing if desired.Methodo logy:DNA analysis of the Factor V gene was performed byall khalida-specific PCR. The diagnostic sensitivity andspecificity is >99% for both. Molecular-based testing ishighly accurate, but a s in any laboratory test , diagnosticerror s may occur. All test results mu st be combined withclinical in formation for the most accurate interpretation. This test was developed and i ts performance characteristics determined by [facility]. It has not been cleared or approvedby [facility] Food and Drug Administration. References:Yadira Massey (1995). Clin Lab Med 16:169-186.Carmen Copeland, MS, PhD, Deanne Ring, PhDPerformed At : [employer] [address] [place] [address] [id number] Joe Bird MD Ph: [phone] PLASMALUPUS ANTICOAGULANT [id number] 12:16:00 Test Item Value Reference Range Interpretation Comments PROTHROMBIN TIME TEST NOT 9.0-14.0 PATIENT (test code = PERFORMED PTP) seconds INTERNATIONAL NORMAL TEST NOT 0.8-1.2 RATIO (test code = PERFORMED INR) PT 1:2 MIX (test 42.2 sec 0.0-55.0 Dilute Prot hrombin code = PTMIX2) Time(dPT): 42 .2 sec (0.0 - 55.0)dPT Confirm Ratio: 1.11 Ratio (0.00 - 1 .40) RVVT PATIENT (test 43.8 sec 0.0-47.0 code = RVVTPAT) RVVT PATIENT MIX TEST NOT (test code = PERFORMED RVVTPATM) RVVT PATIENT CONFIRM TEST NOT (test code = PERFORMED RVVTPATMC) PTT LONG ACTING 34.7 sec 0.0-51.9 (test code = PTTLA) HEXAGONAL PHASE TEST NOT PHOSPHOLIPID (test PERFORMED code = HEXPHAS) THROMBIN TIME (test 18.1 sec 0.0-23.0 Test per formed at: code = TT) [facility] [address] [place] [address] LUPUS ANTICOAGULANT SEE REFERENCE Lupus R eflex PANEL (test code = REPORT Interpret ationComme LUPPT) nt: No lupus anticoagulant w as detected. IS PATIENT ON ANTICOAGULANTS? NPROTEIN C [id number] 12:16:00 Test Item Value Reference Range Interpretation Comments PROTEIN C ANTIGENIC 103 % 60-150 Performe d At: BN [facility] (test code = PROTCAG) [id number] [place], [place] [id number] ra Andre BOATENG Ph:[phone] 4 IS PATIENT ON ANTICOAGULANTS? NPROTEIN S [id number] 12:16:00 Test Item Value Reference Range Interpretation Comments PROTEIN S TOTAL 100 % 60-150 This test wa s developed and its (test code = performance PROTSTOT) characteristics determined by [facility]. It has not been cleared orapproved by [facility] Food and Drug Administration. PROTEIN S FUNC 72 % 63-140 Protein S act ivity may be falsely (test code = increased (mask ing anabnormal, PROTSFN) low result) in patients receiving direct Xainhibi tor (e.g., rivaroxaban, ap ixaban, edoxaban) or adirect thro mbin inhibitor (e.g., dabigatr an) anticoagulanttr eatment due to assay interfere nce by these drugs.Performed At: [facility] [id number] Sanjai MD Ph:[phone] PROTEIN S FREE 104 % 57-157 This test was developed and its (test code = performance PROTSF) characteristics determined by [facility]. It has not been cleared orapproved by [facility] [employer] and Drug Administration. IS PATIENT ON ANTICOAGULANTS? NLUPUS ANTICOAGULANT [id number] 17:07:00 Test Item Value Reference Range Interpretation Comments PROTHROMBIN TIME PATIENT seconds 9.0-14.0 (test code = PTP) INTERNATIONAL NORMAL 0.8-1.2 RATIO (test code = INR) PT 1:2 MIX (test code = 42.2 sec 0.0-55.0 PTMIX2) RVVT PATIENT (test code = 43.8 sec 0.0-47.0 RVVTPAT) RVVT PATIENT MIX (test code = RVVTPATM) RVVT PATIENT CONFIRM (test code = RVVTPATMC) PTT LONG ACTING (test 34.7 sec 0.0-51.9 code = PTTLA) HEXAGONAL PHASE PHOSPHOLIPID (test code = HEXPHAS) THROMBIN TIME (test code 18.1 sec 0.0-23.0 Kayleigh t performed at: = TT) [facility] [address] [place] [address] LUPUS ANTICOAGULANT PANEL (test code = LUPPT) IS PATIENT ON ANTICOAGULANTS? NPROTEIN C [id number] 17:07:00 Test Item Value Reference Range Interpretation Comments PROTEIN C ANTIGENIC 103 % 60-150 Performe d At: [facility] (test code = PROTCAG) [id number] [place], [place] [id number] ra Andre BOATENG Ph:[phone] 4 IS PATIENT ON ANTICOAGULANTS? NPROTEIN S [id number] 17:07:00 Test Item Value Reference Range Interpretation Comments PROTEIN S TOTAL 100 % 60-150 This test wa s developed and its (test code = performance PROTSTOT) characteristics determined by [facility]. It has not been cleared orapproved by [facility] Food and Drug Administration. PROTEIN S FUNC 72 % 63-140 Protein S act ivity may be falsely (test code = increased (mask ing anabnormal, PROTSFN) low result) in patients receiving direct Xainhibi tor (e.g., rivaroxaban, ap ixaban, edoxaban) or adirect thro mbin inhibitor (e.g., dabigatr an) anticoagulanttr eatment due to assay interfere nce by these drugs.Performed At: [facility] [id number] Powell MD Ph:[phone] PROTEIN S FREE 104 % 57-157 This test was developed and its (test code = performance PROTSF) characteristics determined by [facility]. It has not been cleared orapproved by [employer] Food and Drug Administration. IS PATIENT ON ANTICOAGULANTS? NLUPUS ANTICOAGULANT [id number] 16:37:00 Test Item Value Reference Range Interpretation Comments PROTHROMBIN TIME PATIENT seconds 9.0-14.0 (test code = PTP) INTERNATIONAL NORMAL 0.8-1.2 RATIO (test code = INR) PT 1:2 MIX (test code = 42.2 sec 0.0-55.0 PTMIX2) RVVT PATIENT (test code = 43.8 sec 0.0-47.0 RVVTPAT) RVVT PATIENT MIX (test code = RVVTPATM) RVVT PATIENT CONFIRM (test code = RVVTPATMC) PTT LONG ACTING (test 34.7 sec 0.0-51.9 code = PTTLA) PTT LONG ACTING INCUB MIX (test code = PTTLAMI) HEXAGONAL PHASE PHOSPHOLIPID (test code = HEXPHAS) THROMBIN TIME (test code 18.1 sec 0.0-23.0 Kayleigh t performed at: = TT) [facility] [address] [place] [address] LUPUS ANTICOAGULANT PANEL (test code = LUPPT) IS PATIENT ON ANTICOAGULANTS? NPROTEIN C [id number] 16:37:00 Test Item Value Reference Range Interpretation Comments PROTEIN C ANTIGENIC (test code = % PROTCAG) IS PATIENT ON ANTICOAGULANTS? NPROTEIN S [id number] 16:37:00 Test Item Value Reference Range Interpretation Comments PROTEIN S TOTAL 100 % 60-150 This test wa s developed and its (test code = performance PROTSTOT) characteristics determined by [facility]. It has not been cleared orapproved by t he Food and Drug Administration. PROTEIN S FUNC 72 % 63-140 Protein S act ivity may be falsely (test code = increased (mask ing anabnormal, PROTSFN) low result) in patients receiving direct Xainhibi tor (e.g., rivaroxaban, ap ixaban, edoxaban) or adirect thro mbin inhibitor (e.g., dabigatr an) anticoagulanttr eatment due to assay interfere nce by these drugs.Performed At: [facility] [id number] Powell MD Ph:[phone] PROTEIN S FREE 104 % 57-157 This test was developed and its (test code = performance PROTSF) characteristics determined by [facility]. It has not been cleared orapproved by [facility] Food and Drug Administration. IS PATIENT ON ANTICOAGULANTS? NLUPUS ANTICOAGULANT [id number] 16:37:00 Test Item Value Reference Range Interpretation Comments PROTHROMBIN TIME PATIENT seconds 9.0-14.0 (test code = PTP) INTERNATIONAL NORMAL 0.8-1.2 RATIO (test code = INR) PT 1:2 MIX (test code = 42.2 sec 0.0-55.0 PTMIX2) RVVT PATIENT (test code = 43.8 sec 0.0-47.0 RVVTPAT) RVVT PATIENT MIX (test code = RVVTPATM) RVVT PATIENT CONFIRM (test code = RVVTPATMC) PTT LONG ACTING (test 34.7 sec 0.0-51.9 code = PTTLA) HEXAGONAL PHASE PHOSPHOLIPID (test code = HEXPHAS) THROMBIN TIME (test code 18.1 sec 0.0-23.0 Kayleigh t performed at: = TT) [facility] [address] [place] [address] LUPUS ANTICOAGULANT PANEL (test code = LUPPT) IS PATIENT ON ANTICOAGULANTS? NPROTEIN C [id number] 16:37:00 Test Item Value Reference Range Interpretation Comments PROTEIN C ANTIGENIC (test code = % PROTCAG) IS PATIENT ON ANTICOAGULANTS? NPROTEIN S [id number] 16:37:00 Test Item Value Reference Range Interpretation Comments PROTEIN S TOTAL 100 % 60-150 This test wa s developed and its (test code = performance PROTSTOT) characteristics determined by [facility]. It has not been cleared orapproved by [facility] [employer] and Drug Administration. PROTEIN S FUNC 72 % 63-140 Protein S act ivity may be falsely (test code = increased (mask ing anabnormal, PROTSFN) low result) in patients receiving direct Xainhibi tor (e.g., rivaroxaban, ap ixaban, edoxaban) or adirect thro mbin inhibitor (e.g., dabigatr an) anticoagulanttr eatment due to assay interfere nce by these drugs.Performed At: [facility] [id number] Powell MD Ph:[phone] PROTEIN S FREE 104 % 57-157 This test was developed and its (test code = performance PROTSF) characteristics determined by [facility]. It has not been cleared orapproved by [facility] Food and Drug Administration. IS PATIENT ON ANTICOAGULANTS? NLUPUS ANTICOAGULANT [id number] 16:08:00 Test Item Value Reference Range Interpretation Comments PROTHROMBIN TIME PATIENT seconds 9.0-14.0 (test code = PTP) INTERNATIONAL NORMAL 0.8-1.2 RATIO (test code = INR) PT 1:2 MIX (test code = 42.2 sec 0.0-55.0 PTMIX2) RVVT PATIENT (test code = 43.8 sec 0.0-47.0 RVVTPAT) RVVT PATIENT MIX (test code = RVVTPATM) RVVT PATIENT CONFIRM (test code = RVVTPATMC) PTT LONG ACTING (test 34.7 sec 0.0-51.9 code = PTTLA) PTT LONG ACTING MIX (test code = PTTLAM) PTT LONG ACTING INCUB MIX (test code = PTTLAMI) HEXAGONAL PHASE PHOSPHOLIPID (test code = HEXPHAS) THROMBIN TIME (test code 18.1 sec 0.0-23.0 Kayleigh t performed at: = TT) [facility] [address] [place] [address] LUPUS ANTICOAGULANT PANEL (test code = LUPPT) IS PATIENT ON ANTICOAGULANTS? NPROTEIN C [id number] 16:08:00 Test Item Value Reference Range Interpretation Comments PROTEIN C ANTIGENIC (test code = % PROTCAG) IS PATIENT ON ANTICOAGULANTS? NPROTEIN S [id number] 16:08:00 Test Item Value Reference Range Interpretation Comments PROTEIN S TOTAL 100 % 60-150 This test wa s developed and its (test code = performance PROTSTOT) characteristics determined by [facility]. It has not been cleared orapproved by [facility] Food and Drug Administration. PROTEIN S FUNC 72 % 63-140 Protein S act ivity may be falsely (test code = increased (mask ing anabnormal, PROTSFN) low result) in patients receiving direct Xainhibi tor (e.g., rivaroxaban, ap ixaban, edoxaban) or adirect thro mbin inhibitor (e.g., dabigatr an) anticoagulanttr eatment due to assay interfere nce by these drugs.Performed At: [facility] [id number] Powell MD Ph:[phone] PROTEIN S FREE 104 % 57-157 This test was developed and its (test code = performance PROTSF) characteristics determined by [facility]. It has not been cleared orapproved by [facility] [employer] and Drug Administration. IS PATIENT ON ANTICOAGULANTS? NLUPUS ANTICOAGULANT [id number] 15:09:00 Test Item Value Reference Range Interpretation Comments PROTHROMBIN TIME PATIENT (test code seconds 9.0-14.0 = PTP) INTERNATIONAL NORMAL RATIO (test 0.8-1.2 code = INR) PT 1:2 MIX (test code = PTMIX2) SECONDS RVVT PATIENT (test code = RVVTPAT) RVVT PATIENT MIX (test code = RVVTPATM) RVVT PATIENT CONFIRM (test code = RVVTPATMC) PTT LONG ACTING (test code = PTTLA) seconds PTT LONG ACTING MIX (test code = PTTLAM) PTT LONG ACTING INCUB MIX (test code = PTTLAMI) HEXAGONAL PHASE PHOSPHOLIPID (test code = HEXPHAS) THROMBIN TIME (test code = TT) seconds LUPUS ANTICOAGULANT PANEL (test code = LUPPT) IS PATIENT ON ANTICOAGULANTS? NPROTEIN C [id number] 15:09:00 Test Item Value Reference Range Interpretation Comments PROTEIN C ANTIGENIC (test code = % PROTCAG) IS PATIENT ON ANTICOAGULANTS? NPROTEIN S [id number] 15:09:00 Test Item Value Reference Range Interpretation Comments PROTEIN S TOTAL 100 % 60-150 This test wa s developed and its (test code = performance PROTSTOT) characteristics determined by [facility]. It has not been cleared orapproved by [facility] Food and Drug Administration. PROTEIN S FUNC 72 % 63-140 Protein S act ivity may be falsely (test code = increased (mask ing anabnormal, PROTSFN) low result) in patients receiving direct Xainhibi tor (e.g., rivaroxaban, ap ixaban, edoxaban) or adirect thro mbin inhibitor (e.g., dabigatr an) anticoagulanttr eatment due to assay interfere nce by these drugs.Performed At: [facility] [id number] Sanjai MD Ph:[phone] PROTEIN S FREE 104 % 57-157 This test was developed and its (test code = performance PROTSF) characteristics determined by [facility]. It has not been cleared orapproved by [facility] Food and Drug Administration. IS PATIENT ON ANTICOAGULANTS? NANTITHROMBIN III (ATIII)2019-05-27 01:06:00 Test Item Value Reference Range Interpretation Comments ANTITHROMBIN III 92 % 75-135 Direct Xa i nhibitor (ATIII) (test code = anticoa gulants such as AT3) rivaroxaban,api xaban and edoxaban will l ead to spuriously elevatedantithr ombin activity levels possibly masking a deficiency.Perf ormed At: [facility] [id number] ra Andre BOATENG Ph:[phone] [id number] 07:44:00 Test Item Value Reference Range Interpretation Comments GLYCOSYLATED HEMOGLOBIN 5.5 % HbA1 ERICKA RASHEED DIAGNOSIS: (HA1C) (test code = HbA1C GLYHGB) (%) ----- ----- Diab etic >6.4Prediabetes 5.7 - 6.4Normal <5.7 ESTIMATED AVERAGE 111 MG/DL GLUCOSE (test code = EAG) BLOOD GIVEN TO RUSTY MCCOY @ 0712 FOR ADD ONV.LAB.PM 05/26/19711BIL [id number] 07:43:00 Test Item Value Reference Range Interpretation Comments PHOSPHORUS (test code = PHOS) 2.4 mg/dL 2.5-4.9 L BLOOD GIVEN TO RUSTYUVALDO MCCOY TO ADD ON @ 0712V.LAB.PM 05/26/19 0712IGNACIO ZULUAGA [id number] WANTS CANCELLBASIC METABOLIC [id number] 02:55:00 Test Item Value Reference Range Interpretation Comments SODIUM (test code = 144 mmol/L 136-145 N NA) POTASSIUM (test code 3.9 mmol/L 3.5-5.1 N = K) CHLORIDE (test code = 112.0 mmol/L 98-107 H CL) CARBON DIOXIDE (test 26.0 mmol/L 21-32 N code = CO2) ANION GAP (test code 9.9 10-20 L = GAP) GLUCOSE (test code = 96 mg/dL 74-106 N GLU) BLOOD UREA NITROGEN 8 mg/dL 7-18 N (test code = BUN) GLOMERULAR FILTRATION > 60 mL/min >=60 Estima ceasar GFR by RATE (test code = using Sheila fied MDRD GFR) formula.Chronic kidney disease is defined as [facility] er kidney damageor GFR <60 mL/min/1.73 m2 for >3 months. CREATININE (test code 1.00 mg/dL 0.7-1.3 N = CREAT) BUN/CREATININE RATIO 8.0 10-20 L (test code = BUN/CREA) CALCIUM (test code = 9.0 mg/dL 8.5-10.1 N CA) [id number] 02:55:00 Test Item Value Reference Range Interpretation Comments MAGNESIUM (test code = MAG) 2.2 mg/dL 1.8-2.4 N BASIC METABOLIC [id number] 02:49:00 Test Item Value Reference Range Interpretation Comments SODIUM (test code = NA) 144 mmol/L 136-145 N POTASSIUM (test code = K) 3.9 mmol/L 3.5-5.1 N CHLORIDE (test code = CL) 112.0 mmol/L 98-107 H CARBON DIOXIDE (test code = CO2) mmol/L 21-32 ANION GAP (test code = GAP) 10-20 GLUCOSE (test code = GLU) mg/dL 74-106 BLOOD UREA NITROGEN (test code = mg/dL 7-18 BUN) GLOMERULAR FILTRATION RATE (test mL/min >=60 code = GFR) CREATININE (test code = CREAT) mg/dL 0.7-1.3 BUN/CREATININE RATIO (test code 10-20 = BUN/CREA) CALCIUM (test code = CA) mg/dL 8.5-10.1 [id number] 02:49:00 Test Item Value Reference Range Interpretation Comments MAGNESIUM (test code = MAG) mg/dL 1.8-2.4 CBC W/O [id number] 02:43:00 Test Item Value Reference Range Interpretation Comments WHITE BLOOD CELL (test code = 10.4 K/mm3 4.5-12.5 N WBC) RED BLOOD CELL (test code = 4.55 mill/mm3 4.0-5.8 N RBC) HEMOGLOBIN (test code = HGB) 12.7 gram/dL 13.0-17.5 L HEMATOCRIT (test code = HCT) 39.4 % 42.0-52.0 L MEAN CELL VOLUME (test code = 86.6 fL 80-98 N MCV) MEAN CELL HGB (test code = MCH) 27.9 picogram 27.0-33.0 N MEAN CELL HGB CONCETRATION 32.2 gram/dL 33.0-36.0 L (test code = MCHC) RED CELL DISTRIBUTION WIDTH 14.2 % 11.6-16.2 N (test code = RDW) PLATELET COUNT (test code = 285 K/mm3 150-450 N PLT) MEAN PLATELET VOLUME (test code 11.2 fL 6.7-11.0 H = MPV) BASIC METABOLIC [id number] 03:10:00 Test Item Value Reference Range Interpretation Comments SODIUM (test code = 144 mmol/L 136-145 N NA) POTASSIUM (test code 4.1 mmol/L 3.5-5.1 N = K) CHLORIDE (test code = 112.0 mmol/L 98-107 H CL) CARBON DIOXIDE (test 26.0 mmol/L 21-32 N code = CO2) ANION GAP (test code 10.1 10-20 N = GAP) GLUCOSE (test code = 94 mg/dL 74-106 N GLU) BLOOD UREA NITROGEN 10 mg/dL 7-18 N (test code = BUN) GLOMERULAR FILTRATION > 60 mL/min >=60 Estima ceasar GFR by RATE (test code = using Sheila fied MDRD GFR) formula.Chronic kidney disease is defined as eith er kidney damageor GFR <60 mL/min/1.73 m2 for >3 months. CREATININE (test code 1.00 mg/dL 0.7-1.3 N = CREAT) BUN/CREATININE RATIO 10.0 10-20 N (test code = BUN/CREA) CALCIUM (test code = 8.4 mg/dL 8.5-10.1 L CA) [id number] 03:10:00 Test Item Value Reference Range Interpretation Comments MAGNESIUM (test code = MAG) 2.1 mg/dL 1.8-2.4 N BASIC METABOLIC [id number] 03:00:00 Test Item Value Reference Range Interpretation Comments SODIUM (test code = NA) 144 mmol/L 136-145 N POTASSIUM (test code = K) 4.1 mmol/L 3.5-5.1 N CHLORIDE (test code = CL) 112.0 mmol/L 98-107 H CARBON DIOXIDE (test code = CO2) mmol/L 21-32 ANION GAP (test code = GAP) 10-20 GLUCOSE (test code = GLU) mg/dL 74-106 BLOOD UREA NITROGEN (test code = mg/dL 7-18 BUN) GLOMERULAR FILTRATION RATE (test mL/min >=60 code = GFR) CREATININE (test code = CREAT) mg/dL 0.7-1.3 BUN/CREATININE RATIO (test code 10-20 = BUN/CREA) CALCIUM (test code = CA) mg/dL 8.5-10.1 [id number] 03:00:00 Test Item Value Reference Range Interpretation Comments MAGNESIUM (test code = MAG) mg/dL 1.8-2.4 CBC W/O [id number] 02:58:00 Test Item Value Reference Range Interpretation Comments WHITE BLOOD CELL (test code = 9.9 K/mm3 4.5-12.5 N WBC) RED BLOOD CELL (test code = 3.93 mill/mm3 4.0-5.8 L RBC) HEMOGLOBIN (test code = HGB) 11.2 gram/dL 13.0-17.5 L HEMATOCRIT (test code = HCT) 34.3 % 42.0-52.0 L MEAN CELL VOLUME (test code = 87.3 fL 80-98 N MCV) MEAN CELL HGB (test code = MCH) 28.5 picogram 27.0-33.0 N MEAN CELL HGB CONCETRATION 32.7 gram/dL 33.0-36.0 L (test code = MCHC) RED CELL DISTRIBUTION WIDTH 14.2 % 11.6-16.2 N (test code = RDW) PLATELET COUNT (test code = 243 K/mm3 150-450 N PLT) MEAN PLATELET VOLUME (test code 11.6 fL 6.7-11.0 H = MPV) URINALYSIS [id number] 19:00:00 Test Item Value Reference Range Interpretation Comments UA COLOR (test code = COLU) Light-Yellow YELLOW UA APPEARANCE (test code = CLEAR CLEAR APPU) UA GLUCOSE DIPSTICK (test NEGATIVE mg/dL NEGATIVE code = DGLUU) UA BILIRUBIN DIPSTICK (test NEGATIVE mg/dL NEGATIVE code = BILU) UA KETONE DIPSTICK (test code NEGATIVE mg/dL NEGATIVE = KETU) UA SPECIFIC GRAVITY (test 1.037 1.001-1.035 code = SGU) UA BLOOD DIPSTICK (test code Negative mg/dL NEGATIVE = OZZY) UA PH DIPSTICK (test code = 6.0 5.0-8.0 ESHA) UA PROTEIN DIPSTICK (test NEGATIVE mg/dL NEGATIVE code = PROU) UA UROBILINIOGEN DIPSTICK Normal mg/dL NEGATIVE (test code = URO) UA NITRITE DIPSTICK (test NEGATIVE NEGATIVE code = ROCK) UA LEUKOCYTE ESTERASE W NEGATIVE Rosemary/uL NEGATIVE REFLEX (test code = LEUUR) UA WBC (test code = WBCU) 0-5 per HPF 0-5 UA RBC (test code = RBCU) 0-2 #/HPF 0-5 UA EPITHELIAL CELLS (test FEW per HPF FEW code = EPIU) UA BACTERIA (test code = FEW #/HPF NONE A BACU) UA MUCUS (test code = MUCU) FEW #/LPF FEW Urine Source? Clean CatchDRUGS OF ABUSE SCREEN [id number] 19:00:00 Test Item Value Reference Range Interpretation Comments URN COCAINE (test NEGATIVE <300 ng/mL code = COCAURN) URN CANNABINOIDS NEGATIVE <50 ng/mL (test code = CANNABURN) URN AMPHETAMINE (test POSITIVE <1000 ng/mL A This t est provides only a code = AMPHETURN) preliminar y test result. A morespecific alternate chemical method must be used in order t oobtain a confirmed oliver tical result. Gas chromatography/ mass spectrometry (G C/MS) is thepreferred co nfirmatory method. Other chemical confirmationmet hods are available. Cli nical consideration a nd professional ju dgment should be appli ed to any drug of abusete st result, particularly wh en preliminary pos itive resultsare used.Unconfirme d screening resul ts must not be used fornon-medical purposes (e.g., employme nt testing, legalt esting). URN BARBITURATE (test NEGATIVE <200 ng/mL code = BARBITURN) URN BENZODIAZEPINE POSITIVE <200 ng/mL A This test provides only a (test code = preliminary kayleigh t result. BENZOURN) A morespecific alternate chemical method must be used in order t oobtain a confirmed oliver tical result. Gas chromatography/ mass spectrometry (G C/MS) is thepreferred co nfirmatory method. Other chemical confirmationmet hods are available. Cli nical consideration a nd professional ju dgment should be appli ed to any drug of abusete st result, particularly wh en preliminary pos itive resultsare used.Unconfirme d screening resul ts must not be used fornon-medical purposes (e.g., employme nt testing, legalt esting). URN OPIATES (test POSITIVE <300 ng/mL A This test provides only a code = OPIATURN) preliminary test result. A morespecific alternate chemical method must be used in order t oobtain a confirmed oliver tical result. Gas chromatography/ mass spectrometry (G C/MS) is thepreferred co nfirmatory method. Other chemical confirmationmet hods are available. Cli nical consideration a nd professional ju dgment should be appli ed to any drug of abusete st result, particularly wh en preliminary pos itive resultsare used.Unconfirme d screening resul ts must not be used fornon-medical purposes (e.g., employme nt testing, legalt esting). URN PHENCYCLIDINE NEGATIVE <25 ng/mL (PCP) (test code = PHENCURN) URN METHADONE (test NEGATIVE <300 ng/mL code = METHAURN) Urine Source? Clean CatchURINALYSIS [id number] 17:41:00 Test Item Value Reference Range Interpretation Comments UA COLOR (test code = COLU) Light-Yellow YELLOW UA APPEARANCE (test code = CLEAR CLEAR APPU) UA GLUCOSE DIPSTICK (test NEGATIVE mg/dL NEGATIVE code = DGLUU) UA BILIRUBIN DIPSTICK (test NEGATIVE mg/dL NEGATIVE code = BILU) UA KETONE DIPSTICK (test code NEGATIVE mg/dL NEGATIVE = KETU) UA SPECIFIC GRAVITY (test 1.037 1.001-1.035 code = SGU) UA BLOOD DIPSTICK (test code Negative mg/dL NEGATIVE = OZZY) UA PH DIPSTICK (test code = 6.0 5.0-8.0 ESHA) UA PROTEIN DIPSTICK (test NEGATIVE mg/dL NEGATIVE code = PROU) UA UROBILINIOGEN DIPSTICK Normal mg/dL NEGATIVE (test code = URO) UA NITRITE DIPSTICK (test NEGATIVE NEGATIVE code = ROCK) UA LEUKOCYTE ESTERASE W NEGATIVE Rosemary/uL NEGATIVE REFLEX (test code = LEUUR) UA WBC (test code = WBCU) 0-5 per HPF 0-5 UA RBC (test code = RBCU) 0-2 #/HPF 0-5 UA EPITHELIAL CELLS (test FEW per HPF FEW code = EPIU) UA BACTERIA (test code = FEW #/HPF NONE A BACU) UA MUCUS (test code = MUCU) FEW #/LPF FEW Urine Source? Clean CatchDRUGS OF ABUSE SCREEN [id number] 17:41:00 Test Item Value Reference Range Interpretation Comments URN COCAINE (test code = COCAURN) <300 ng/mL URN CANNABINOIDS (test code = <50 ng/mL CANNABURN) URN AMPHETAMINE (test code = AMPHETURN) <1000 ng/mL URN BARBITURATE (test code = BARBITURN) <200 ng/mL URN BENZODIAZEPINE (test code = <200 ng/mL BENZOURN) URN OPIATES (test code = OPIATURN) <300 ng/mL URN PHENCYCLIDINE (PCP) (test code = <25 ng/mL PHENCURN) URN METHADONE (test code = METHAURN) <300 ng/mL Urine Source? Clean CatchURINALYSIS [id number] 17:28:00 Test Item Value Reference Range Interpretation Comments UA COLOR (test code = COLU) Light-Yellow YELLOW UA APPEARANCE (test code = CLEAR CLEAR APPU) UA GLUCOSE DIPSTICK (test NEGATIVE mg/dL NEGATIVE code = DGLUU) UA BILIRUBIN DIPSTICK (test NEGATIVE mg/dL NEGATIVE code = BILU) UA KETONE DIPSTICK (test code NEGATIVE mg/dL NEGATIVE = KETU) UA SPECIFIC GRAVITY (test 1.037 1.001-1.035 code = SGU) UA BLOOD DIPSTICK (test code Negative mg/dL NEGATIVE = OZZY) UA PH DIPSTICK (test code = 6.0 5.0-8.0 ESHA) UA PROTEIN DIPSTICK (test NEGATIVE mg/dL NEGATIVE code = PROU) UA UROBILINIOGEN DIPSTICK Normal mg/dL NEGATIVE (test code = URO) UA NITRITE DIPSTICK (test NEGATIVE NEGATIVE code = ROCK) UA LEUKOCYTE ESTERASE W NEGATIVE Rosemary/uL NEGATIVE REFLEX (test code = LEUUR) UA WBC (test code = WBCU) per HPF 0-5 UA RBC (test code = RBCU) per HPF 0-5 UA EPITHELIAL CELLS (test per HPF Few code = EPIU) UA BACTERIA (test code = per HPF NONE BACU) Urine Source? Clean CatchDRUGS OF ABUSE SCREEN [id number] 17:28:00 Test Item Value Reference Range Interpretation Comments URN COCAINE (test code = COCAURN) <300 ng/mL URN CANNABINOIDS (test code = <50 ng/mL CANNABURN) URN AMPHETAMINE (test code = AMPHETURN) <1000 ng/mL URN BARBITURATE (test code = BARBITURN) <200 ng/mL URN BENZODIAZEPINE (test code = <200 ng/mL BENZOURN) URN OPIATES (test code = OPIATURN) <300 ng/mL URN PHENCYCLIDINE (PCP) (test code = <25 ng/mL PHENCURN) URN METHADONE (test code = METHAURN) <300 ng/mL Urine Source? Clean [id number] 17:06:00 Test Item Value Reference Range Interpretation Comments GLYCOSYLATED HEMOGLOBIN 5.8 % HbA1 ERICKA RASHEED DIAGNOSIS: (HA1C) (test code = HbA1C GLYHGB) (%) ----- ----- Diab etic >6.4Prediabetes 5.7 - 6.4Normal <5.7 ESTIMATED AVERAGE 120 MG/DL GLUCOSE (test code = EAG) PROTHROMBIN [id number] 07:30:00 Test Item Value Reference Range Interpretation Comments PROTHROMBIN TIME 12.8 seconds 9.0-14.0 N PATIENT (test code = PTP) INTERNATIONAL NORMAL 1.1 0.8-1.2 N The the rapeutic range RATIO (test code = for oral INR) anticoagulant t herapy formost indicat ions is an internati onal normalized rati o (INR)of between 2.0 and 3.0. The recommended therapeutic INR range for various cli nical situations is l isted below: Clinical Situat ion INR range Pulmonary embol ism treatment (2.0-3.0)Venou s thrombosis treatmentVenous thrombosis prophylaxis (hi gh risk surgery)Prevent ion of systemic emboli sm from: A cute myocardial infa rction Valvula r heart disease Atrial fibrilla tion Mechanical pros thetic heart valves (2.5-3.5) IS PATIENT ON ANTICOAGULANTS? YLIST ANTICOAGULANTS INTEGRILINTHROMBOPLASTIN TIME [id number] 07:30:00 Test Item Value Reference Range Interpretation Comments THROMBOPLASTIN TIME PARTIAL 31.6 seconds 25.0-36.5 N (test code = PTT) IS PATIENT ON ANTICOAGULANTS? YLIST ANTICOAGULANTS INTEGRILINCOMPREHENSIVE METABOLIC [id number] 04:09:00 Test Item Value Reference Range Interpretation Comments SODIUM (test code = 141 mmol/L 136-145 N NA) POTASSIUM (test code = 4.0 mmol/L 3.5-5.1 N K) CHLORIDE (test code = 109.0 mmol/L 98-107 H CL) CARBON DIOXIDE (test 27.0 mmol/L 21-32 N code = CO2) ANION GAP (test code = 9.0 10-20 L GAP) GLUCOSE (test code = 107 mg/dL 74-106 H GLU) BLOOD UREA NITROGEN 14 mg/dL 7-18 N (test code = BUN) GLOMERULAR FILTRATION > 60 mL/min >=60 Estima ceasar GFR by RATE (test code = GFR) using Modified MDRD formula.Chronic kidney disease is defined as [facility] er kidney damageor GFR <60 mL/min/1.73 m2 for >3 months. CREATININE (test code 1.00 mg/dL 0.7-1.3 N = CREAT) BUN/CREATININE RATIO 14.0 10-20 N (test code = BUN/CREA) TOTAL PROTEIN (test 6.4 gram/dL 6.4-8.2 N code = PROT) ALBUMIN (test code = 3.3 g/dL 3.4-5.0 L ALB) GLOBULIN (test code = 3.1 gram/dL 2.7-4.2 N GLOB) ALBUMIN/GLOBULIN RATIO 1.1 0.75-1.50 N (test code = A/G) CALCIUM (test code = 8.2 mg/dL 8.5-10.1 L CA) BILIRUBIN TOTAL (test 0.30 mg/dL 0.0-1.0 N code = BILT) SGOT/AST (test code = 110 IUnit/L 15-37 H AST) SGPT/ALT (test code = 37 IUnit/L 12-78 N ALT) ALKALINE PHOSPHATASE 124 IUnit/L 45-117 H Note change in TOTAL (test code = reference range due ALKP) to change in reagent. LIPID PROFILE (CORONARY RISK)2019-05-24 04:09:00 Test Item Value Reference Range Interpretation Comments TRIGLYCERIDES (test 146 mg/dL 20-150 N code = TRIG) CHOLESTEROL (test code 189 mg/dL 0-200 N = CHOL) CHOLESTEROL/HDL RATIO 5.0 RATIO 0-4.9 H RISK A SSOCIATED WITH (test code = CHOLHDL) CHOL/H DL RATIOS: Risk M jazmyn Female1/[address] A[address] RAGE 3.43 3.27AVERAGE 4.97 4.4 41X AVERAGE 9.[address] RAGE 23.39 11.04 REFERENCE VALUE IS RELATED TO RISK LEVELS ASRECOMMENDED B Y THE YOBANI. HEART, MICKEY G, AND BLOOD INST. HDL CHOLESTEROL (test 34 mg/dL 40-60 L code = HDL) LIPOPROTEIN LDL (test 133 mg/dL 100-129 H RN PER MEAGHAN, CONTACT code = LDL) PHYSICIAN IMMED IATELY IF THIS IS A [facility] [place], AMI OR CAROTID STENOSIS PATIEN T WHEN THE LDL >100 ([address] OCCURENCE, THIS ADMISSION)===== ======= ======= ======= ===Reference In terval: mg/dL mmol/L-------- ------- ------- ------- Optimal <100 <2.6Near/above optimal 100-12 9 2.6-3.3Borderl ine High 130-159 3.4-4.1High 160 -189 4.1-4.9Very High >=190 >=4.9========= This LDL result is a direct measurement.=== ====== CBC W/AUTO [id number] 03:45:00 Test Item Value Reference Range Interpretation Comments WHITE BLOOD CELL (test code = 14.0 K/mm3 4.5-12.5 H WBC) RED BLOOD CELL (test code = 4.12 mill/mm3 4.0-5.8 N RBC) HEMOGLOBIN (test code = HGB) 11.9 gram/dL 13.0-17.5 L HEMATOCRIT (test code = HCT) 35.9 % 42.0-52.0 L MEAN CELL VOLUME (test code = 87.1 fL 80-98 N MCV) MEAN CELL HGB (test code = MCH) 28.9 picogram 27.0-33.0 N MEAN CELL HGB CONCETRATION 33.1 gram/dL 33.0-36.0 N (test code = MCHC) RED CELL DISTRIBUTION WIDTH 14.3 % 11.6-16.2 N (test code = RDW) RED CELL DISTRIBUTION WIDTH SD 45.6 fL 37.0-51.0 N (test code = RDW-SD) PLATELET COUNT (test code = 274 K/mm3 150-450 N PLT) MEAN PLATELET VOLUME (test code 11.3 fL 6.7-11.0 H = MPV) NEUTROPHIL % (test code = NT%) 78.0 % 39.0-69.0 H IMMATURE GRANULOCYTE % (test 0.4 % 0.0-5.0 N code = IG%) LYMPHOCYTE % (test code = LY%) 12.7 % 25.0-55.0 L MONOCYTE % (test code = MO%) 8.1 % 0.0-10.0 N EOSINOPHIL % (test code = EO%) 0.4 % 0.0-5.0 N BASOPHIL % (test code = BA%) 0.4 % 0.0-1.0 N NUCLEATED RBC % (test code = 0.0 % 0-0 N NRBC%) NEUTROPHIL # (test code = NT#) 10.96 K/mm3 1.8-7.7 H IMMATURE GRANULOCYTE # (test 0.06 x10 3/uL 0-0.03 H code = IG#) LYMPHOCYTE # (test code = LY#) 1.78 K/mm3 1.0-5.0 N MONOCYTE # (test code = MO#) 1.13 K/mm3 0-0.8 H EOSINOPHIL # (test code = EO#) 0.05 K/mm3 0.0-0.5 N BASOPHIL # (test code = BA#) 0.05 K/mm3 0.0-0.2 N NUCLEATED RBC # (test code = 0.00 K/mm3 0.0-0.1 N NRBC#) MANUAL DIFF REQUIRED (test code NO = MDIFF) - XR CHEST 1 [id number] 01:14:00 FAX: Mary Avila [phone] [place]: [address]: ADM Name: NAIF MAGANA [facility] : 1985 Age/S: 34/M [address] Unit#: [id number] Loc: [place] [address] Phys: Mary Gill MD Acct: [id number] Dis Date: Status: ADM IN PHONE #: [phone] Exam Date: 05/24/2019 0106 FAX #: [phone] Reason: CHEST PAIN EXAMS: CPT CODE: [id number] XR CHEST 1 V [id number] EXAM: - XR CHEST 1 V HISTORY: Chest pain. COMPARISON: April 12, 2019. FINDINGS: Single AP view of the chest is provided. Heart size and vascularity are within normal limits. The lungs are clear of focal consolidation. No effusion, pneumothorax, or acute osseous abnormality. Thereis no significant interval change. IMPRESSION: No radiographic evidence of acute cardiopulmonary process. [id number] Reported and signed by: Hakeem Odonnell MD CC: Mary Gill MD Technologist: Lissy Ventura Date/Time/By: 05/24/2019 (0114) : By: [email or web address] Orig Print D/T: S: 05/24/2019 (0118) PAGE 1 Signed ReportCOAGULATION TIME [id number] 23:16:00 Test Item Value Reference Range Interpretation Comments COAGULATION TIME ACTIVATED (test 248 seconds 62.8-88.0 H code = ACT) COAGULATION TIME [id number] 23:00:00 Test Item Value Reference Range Interpretation Comments COAGULATION TIME ACTIVATED (test 203 seconds 62.8-88.0 H code = ACT) PROTHROMBIN [id number] 22:47:00 Test Item Value Reference Range Interpretation Comments PROTHROMBIN TIME 13.2 seconds 9.0-14.0 N PATIENT (test code = PTP) INTERNATIONAL NORMAL 1.1 0.8-1.2 N The the rapeutic range RATIO (test code = for oral INR) anticoagulant t herapy formost indicat ions is an internati onal normalized rati o (INR)of between 2.0 and 3.0. The recommended therapeutic INR range for various cli nical situations is l isted below: Clinical Situat ion INR range Pulmonary embol ism treatment (2.0-3.0)Venou s thrombosis treatmentVenous thrombosis prophylaxis (hi gh risk surgery)Prevent ion of systemic emboli sm from: A cute myocardial infa rction Valvula r heart disease Atrial fibrilla tion Mechanical pros thetic heart valves (2.5-3.5) IS PATIENT ON ANTICOAGULANTS? NTHROMBOPLASTIN TIME [id number] 22:47:00 Test Item Value Reference Range Interpretation Comments THROMBOPLASTIN TIME > 400.0 seconds 25.0-36.5 HH Resul ts called PARTIAL (test code = to PRU8 625 by PTT) V.LAB.QD 05/23/19 2246Critical results verifie d and read back b y Nurse? YES IS PATIENT ON ANTICOAGULANTS? NB-TYPE NATRIURETIC [id number] 22:41:00 Test Item Value Reference Range Interpretation Comments B-TYPE NATRIURETIC PEPTIDE 6.68 pgram/mL 0-100 N (test code = BNP) BASIC METABOLIC [id number] 22:22:00 Test Item Value Reference Range Interpretation Comments SODIUM (test code = 138 mmol/L 136-145 N NA) POTASSIUM (test code 3.4 mmol/L 3.5-5.1 L = K) CHLORIDE (test code = 106.0 mmol/L 98-107 N CL) CARBON DIOXIDE (test 21.0 mmol/L 21-32 N code = CO2) ANION GAP (test code 14.4 10-20 N = GAP) GLUCOSE (test code = 135 mg/dL 74-106 H GLU) BLOOD UREA NITROGEN 14 mg/dL 7-18 N (test code = BUN) GLOMERULAR FILTRATION > 60 mL/min >=60 Estima ceasar GFR by RATE (test code = using Sheila fied MDRD GFR) formula.Chronic kidney disease is defined as [facility] kidney damageor GFR <60 mL/min/1.73 m2 for >3 months. CREATININE (test code 1.20 mg/dL 0.7-1.3 N = CREAT) BUN/CREATININE RATIO 11.7 10-20 N (test code = BUN/CREA) CALCIUM (test code = 8.6 mg/dL 8.5-10.1 N CA) HEPATIC FUNCTION [id number] 22:22:00 Test Item Value Reference Range Interpretation Comments TOTAL PROTEIN (test 7.4 gram/dL 6.4-8.2 N code = PROT) ALBUMIN (test code = 3.7 g/dL 3.4-5.0 N ALB) GLOBULIN (test code = 3.7 gram/dL 2.7-4.2 N GLOB) ALBUMIN/GLOBULIN RATIO 1.0 0.75-1.50 N (test code = A/G) BILIRUBIN TOTAL (test 0.30 mg/dL 0.0-1.0 N code = BILT) BILIRUBIN DIRECT (test 0.21 mg/dL 0.0-0.20 H code = BILD) SGOT/AST (test code = 28 IUnit/L 15-37 N AST) SGPT/ALT (test code = 34 IUnit/L 12-78 N ALT) ALKALINE PHOSPHATASE 154 IUnit/L 45-117 H Note change in TOTAL (test code = reference range due ALKP) to change in reagent. [id number] 22:22:00 Test Item Value Reference Range Interpretation Comments LIPASE (test code = LIP) 157 U/L 73.0-393.0 N [id number] 22:22:00 Test Item Value Reference Range Interpretation Comments MAGNESIUM (test code = MAG) 1.9 mg/dL 1.8-2.4 N [id number] 22:22:00 Test Item Value Reference Range Interpretation Comments TROPONIN-I (test code = TROPI) 0.022 ng/mL 0-0.045 N CBC W/O [id number] 22:13:00 Test Item Value Reference Range Interpretation Comments WHITE BLOOD CELL (test code = 11.7 K/mm3 4.5-12.5 N WBC) RED BLOOD CELL (test code = 4.62 mill/mm3 4.0-5.8 N RBC) HEMOGLOBIN (test code = HGB) 13.3 gram/dL 13.0-17.5 N HEMATOCRIT (test code = HCT) 40.4 % 42.0-52.0 L MEAN CELL VOLUME (test code = 87.4 fL 80-98 N MCV) MEAN CELL HGB (test code = MCH) 28.8 picogram 27.0-33.0 N MEAN CELL HGB CONCETRATION 32.9 gram/dL 33.0-36.0 L (test code = MCHC) RED CELL DISTRIBUTION WIDTH 14.2 % 11.6-16.2 N (test code = RDW) PLATELET COUNT (test code = 312 K/mm3 150-450 N PLT) MEAN PLATELET VOLUME (test code 11.3 fL 6.7-11.0 H = MPV) BASIC METABOLIC [id number] 22:13:00 Test Item Value Reference Range Interpretation Comments SODIUM (test code = NA) 138 mmol/L 136-145 N POTASSIUM (test code = K) 3.4 mmol/L 3.5-5.1 L CHLORIDE (test code = CL) 106.0 mmol/L 98-107 N CARBON DIOXIDE (test code = CO2) mmol/L 21-32 ANION GAP (test code = GAP) 10-20 GLUCOSE (test code = GLU) mg/dL 74-106 BLOOD UREA NITROGEN (test code = mg/dL 7-18 BUN) GLOMERULAR FILTRATION RATE (test mL/min >=60 code = GFR) CREATININE (test code = CREAT) mg/dL 0.7-1.3 BUN/CREATININE RATIO (test code 10-20 = BUN/CREA) CALCIUM (test code = CA) mg/dL 8.5-10.1 HEPATIC FUNCTION [id number] 22:13:00 Test Item Value Reference Range Interpretation Comments TOTAL PROTEIN (test code = PROT) gram/dL 6.4-8.2 ALBUMIN (test code = ALB) g/dL 3.4-5.0 GLOBULIN (test code = GLOB) gram/dL 2.7-4.2 ALBUMIN/GLOBULIN RATIO (test code = 0.75-1.50 A/G) BILIRUBIN TOTAL (test code = BILT) mg/dL 0.0-1.0 BILIRUBIN DIRECT (test code = BILD) mg/dL 0.0-0.20 SGOT/AST (test code = AST) IUnit/L 15-37 SGPT/ALT (test code = ALT) IUnit/L 12-78 ALKALINE PHOSPHATASE TOTAL (test IUnit/L 45-117 code = ALKP) [id number] 22:13:00 Test Item Value Reference Range Interpretation Comments LIPASE (test code = LIP) U/L 73.0-393.0 [id number] 22:13:00 Test Item Value Reference Range Interpretation Comments MAGNESIUM (test code = MAG) mg/dL 1.8-2.4 [id number] 22:13:00 Test Item Value Reference Range Interpretation Comments TROPONIN-I (test code = TROPI) ng/mL 0-0.045 CBC W/O [id number] 22:07:00 Test Item Value Reference Range Interpretation Comments WHITE BLOOD CELL (test code = K/mm3 4.5-12.5 WBC) RED BLOOD CELL (test code = RBC) mill/mm3 4.0-5.8 HEMOGLOBIN (test code = HGB) 13.3 gram/dL 13.0-17.5 N HEMATOCRIT (test code = HCT) % 42.0-52.0 MEAN CELL VOLUME (test code = fL 80-98 MCV) MEAN CELL HGB (test code = MCH) picogram 27.0-33.0 MEAN CELL HGB CONCETRATION (test gram/dL 33.0-36.0 code = MCHC) RED CELL DISTRIBUTION WIDTH % 11.6-16.2 (test code = RDW) PLATELET COUNT (test code = PLT) K/mm3 150-450 MEAN PLATELET VOLUME (test code fL 6.7-11.0 = MPV) BASIC METABOLIC [id number] 04:49:00 Test Item Value Reference Range Interpretation Comments SODIUM (test code = NA) 137 mEq/L 134-147 N POTASSIUM (test code = 4.1 mEq/L 3.4-5.0 N K) CHLORIDE (test code = 106 mEq/L 100-108 N CL) CARBON DIOXIDE (test 23 mEq/L 21-33 N code = CO2) ANION GAP (test code = 12 0-20 N GAP) GLUCOSE (test code = 106 mg/dL 70-110 N GLU) BLOOD UREA NITROGEN 17 mg/dL 7-18 N (test code = BUN) GLOMERULAR FILTRATION 76.2 105-110 L Units of measure = RATE (test code = GFR) ml/mi n/1.73 m2 CREATININE (test code = 1.1 mg/dL 0.6-1.3 N CREAT) CALCIUM (test code = 9.3 mg/dL 8.0-10.5 N CA) CBC W/AUTO [id number] 04:29:00 Test Item Value Reference Range Interpretation Comments WHITE BLOOD CELL (test code = 9.00 x10 3/uL 4.5-11.0 N WBC) RED BLOOD CELL (test code = 4.86 x10 6/uL 4.00-5.60 N RBC) HEMOGLOBIN (test code = HGB) 13.8 g/dL 12.5-16.9 N HEMATOCRIT (test code = HCT) 43.9 % 37.5-50.7 N MEAN CELL VOLUME (test code = 90.3 fL 81.0-99.0 N MCV) MEAN CELL HGB (test code = MCH) 28.4 pg 27.0-33.0 N MEAN CELL HGB CONCETRATION 31.4 g/dL 33.0-37.0 L (test code = MCHC) RED CELL DISTRIBUTION WIDTH CV 14.3 % 11.5-14.5 N (test code = RDW) RED CELL DISTRIBUTION WIDTH SD 47.2 fL 37.0-54.0 N (test code = RDW-SD) PLATELET COUNT (test code = 284 x10 3/uL 150-400 N PLT) MEAN PLATELET VOLUME (test code 11.2 fL 7.0-9.0 H = MPV) NEUTROPHIL % (test code = NT%) 69.6 % 56.0-77.0 N IMMATURE GRANULOCYTE % (test 0.4 % 0.0-2.0 N code = IG%) LYMPHOCYTE % (test code = LY%) 17.7 % 14.0-32.0 N MONOCYTE % (test code = MO%) 9.1 % 4.8-9.0 H EOSINOPHIL % (test code = EO%) 2.4 % 0.3-3.7 N BASOPHIL % (test code = BA%) 0.8 % 0.0-2.0 N NUCLEATED RBC % (test code = 0.0 % 0-0 N NRBC%) NEUTROPHIL # (test code = NT#) 6.26 x10 3/uL 2.0-7.6 N IMMATURE GRANULOCYTE # (test 0.04 x10 3/uL 0.00-0.03 H code = IG#) LYMPHOCYTE # (test code = LY#) 1.59 x10 3/uL 1.0-3.8 N MONOCYTE # (test code = MO#) 0.82 x10 3/uL 0.1-0.8 H EOSINOPHIL # (test code = EO#) 0.22 x10 3/uL 0.0-0.2 H BASOPHIL # (test code = BA#) 0.07 x10 3/uL 0.0-0.2 N NUCLEATED RBC # (test code = 0.00 x10 3/uL 0.0-0.1 N NRBC#) MANUAL DIFF REQUIRED (test code NO = MDIFF) [id number] 11:15:00 Test Item Value Reference Range Interpretation Comments ACT-ISTAT (test code 274 SEC 74-137 H Perform ed by certified = ACTI) 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[facility] BASIC METABOLIC [id number] 05:07:00 Test Item Value Reference Range Interpretation Comments SODIUM (test code = NA) 139 mEq/L 134-147 N POTASSIUM (test code = 4.0 mEq/L 3.4-5.0 N K) CHLORIDE (test code = 109 mEq/L 100-108 H CL) CARBON DIOXIDE (test 27 mEq/L 21-33 N code = CO2) ANION GAP (test code = 7 0-20 N GAP) GLUCOSE (test code = 91 mg/dL 70-110 N GLU) BLOOD UREA NITROGEN 20 mg/dL 7-18 H (test code = BUN) GLOMERULAR FILTRATION 68.9 105-110 L Units of measure = RATE (test code = GFR) ml/mi n/1.73 m2 CREATININE (test code = 1.2 mg/dL 0.6-1.3 N CREAT) CALCIUM (test code = 9.1 mg/dL 8.0-10.5 N CA) COMMENTS: To be done morning of Heart CathPROTHROMBIN [id number] 05:05:00 Test Item Value Reference Range Interpretation Comments PROTHROMBIN TIME 11.7 SECONDS 9.3-12.9 N PATIENT (test code = PTP) INTERNATIONAL NORMAL 1.1 0.8-1.2 N TARGET RATIO (test code = INR BY IN DICATION INR) Indication INR1. Prophyl axis of venous thrombos is 2.0 - 3. 0 (orthopedic y[place]el [place]), Prophylaxis of venous thrombos is (other than hig h-risk surgery), Reina tment of Deep Vein Thrombosis/Pulm onary Embolism, Preve ntion of systemic emb olism - Tissue heart va lves, Acute Myocardia l Infarction (to prevent systemic embo lism), Valvular heart disease, Atri al Fibrillation, Bileaflet mecha nical valve in aortic position.2. Mec hanical prosthetic valv es (high risk), 2.5 - 3.5 Presence of Lupus Anticoagu lant or Antiphospholi pid Antibodies, Pre vention of systemic e mbolism - Acute Myocard ial Infarction (t o prevent recurre nt infarct). THROMBOPLASTIN TIME [id number] 05:05:00 Test Item Value Reference Range Interpretation Comments THROMBOPLASTIN TIME 40.1 Seconds 25.0-39.5 H Ther apeutic PARTIAL (test code = Range: 50.4 - 88.3 PTT) Seconds Effective 06/23/2018 BASIC METABOLIC [id number] 05:03:00 Test Item Value Reference Range Interpretation Comments SODIUM (test code = NA) 139 mEq/L 134-147 N POTASSIUM (test code = K) 4.0 mEq/L 3.4-5.0 N CHLORIDE (test code = CL) 109 mEq/L 100-108 H CARBON DIOXIDE (test code = CO2) 27 mEq/L 21-33 N ANION GAP (test code = GAP) 7 0-20 N GLUCOSE (test code = GLU) 91 mg/dL 70-110 N BLOOD UREA NITROGEN (test code = 20 mg/dL 7-18 H BUN) GLOMERULAR FILTRATION RATE (test 105-110 code = GFR) CREATININE (test code = CREAT) mg/dL 0.6-1.3 CALCIUM (test code = CA) 9.1 mg/dL 8.0-10.5 N COMMENTS: To be done morning of Heart CathCBC W/AUTO [id number] 04:47:00 Test Item Value Reference Range Interpretation Comments WHITE BLOOD CELL (test code = 8.50 x10 3/uL 4.5-11.0 N WBC) RED BLOOD CELL (test code = 5.21 x10 6/uL 4.00-5.60 N RBC) HEMOGLOBIN (test code = HGB) 14.8 g/dL 12.5-16.9 N HEMATOCRIT (test code = HCT) 46.4 % 37.5-50.7 N MEAN CELL VOLUME (test code = 89.1 fL 81.0-99.0 N MCV) MEAN CELL HGB (test code = MCH) 28.4 pg 27.0-33.0 N MEAN CELL HGB CONCETRATION 31.9 g/dL 33.0-37.0 L (test code = MCHC) RED CELL DISTRIBUTION WIDTH CV 14.3 % 11.5-14.5 N (test code = RDW) RED CELL DISTRIBUTION WIDTH SD 45.9 fL 37.0-54.0 N (test code = RDW-SD) PLATELET COUNT (test code = 316 x10 3/uL 150-400 N PLT) MEAN PLATELET VOLUME (test code 11.0 fL 7.0-9.0 H = MPV) NEUTROPHIL % (test code = NT%) 62.3 % 56.0-77.0 N IMMATURE GRANULOCYTE % (test 0.2 % 0.0-2.0 N code = IG%) LYMPHOCYTE % (test code = LY%) 24.0 % 14.0-32.0 N MONOCYTE % (test code = MO%) 9.8 % 4.8-9.0 H EOSINOPHIL % (test code = EO%) 2.8 % 0.3-3.7 N BASOPHIL % (test code = BA%) 0.9 % 0.0-2.0 N NUCLEATED RBC % (test code = 0.0 % 0-0 N NRBC%) NEUTROPHIL # (test code = NT#) 5.29 x10 3/uL 2.0-7.6 N IMMATURE GRANULOCYTE # (test 0.02 x10 3/uL 0.00-0.03 N code = IG#) LYMPHOCYTE # (test code = LY#) 2.04 x10 3/uL 1.0-3.8 N MONOCYTE # (test code = MO#) 0.83 x10 3/uL 0.1-0.8 H EOSINOPHIL # (test code = EO#) 0.24 x10 3/uL 0.0-0.2 H BASOPHIL # (test code = BA#) 0.08 x10 3/uL 0.0-0.2 N NUCLEATED RBC # (test code = 0.00 x10 3/uL 0.0-0.1 N NRBC#) MANUAL DIFF REQUIRED (test code NO = MDIFF) COMMENTS: To be done morning of Heart CathBASIC METABOLIC [id number] 15:19:00 Test Item Value Reference Range Interpretation Comments SODIUM (test code = NA) 137 mEq/L 134-147 N POTASSIUM (test code = 4.0 mEq/L 3.4-5.0 N K) CHLORIDE (test code = 107 mEq/L 100-108 N CL) CARBON DIOXIDE (test 25 mEq/L 21-33 N code = CO2) ANION GAP (test code = 9 0-20 N GAP) GLUCOSE (test code = 90 mg/dL 70-110 N GLU) BLOOD UREA NITROGEN 19 mg/dL 7-18 H (test code = BUN) GLOMERULAR FILTRATION 76.2 105-110 L Units of measure = RATE (test code = GFR) ml/mi n/1.73 m2 CREATININE (test code = 1.1 mg/dL 0.6-1.3 N CREAT) CALCIUM (test code = 9.0 mg/dL 8.0-10.5 N CA) CBC W/AUTO [id number] 07:52:00 Test Item Value Reference Range Interpretation Comments WHITE BLOOD CELL (test code = 9.71 x10 3/uL 4.5-11.0 N WBC) RED BLOOD CELL (test code = 5.05 x10 6/uL 4.00-5.60 N RBC) HEMOGLOBIN (test code = HGB) 14.3 g/dL 12.5-16.9 N HEMATOCRIT (test code = HCT) 45.8 % 37.5-50.7 N MEAN CELL VOLUME (test code = 90.7 fL 81.0-99.0 N MCV) MEAN CELL HGB (test code = MCH) 28.3 pg 27.0-33.0 N MEAN CELL HGB CONCETRATION 31.2 g/dL 33.0-37.0 L (test code = MCHC) RED CELL DISTRIBUTION WIDTH CV 14.4 % 11.5-14.5 N (test code = RDW) RED CELL DISTRIBUTION WIDTH SD 47.8 fL 37.0-54.0 N (test code = RDW-SD) PLATELET COUNT (test code = 296 x10 3/uL 150-400 N PLT) MEAN PLATELET VOLUME (test code 11.7 fL 7.0-9.0 H = MPV) NEUTROPHIL % (test code = NT%) 65.4 % 56.0-77.0 N IMMATURE GRANULOCYTE % (test 0.3 % 0.0-2.0 N code = IG%) LYMPHOCYTE % (test code = LY%) 20.6 % 14.0-32.0 N MONOCYTE % (test code = MO%) 10.3 % 4.8-9.0 H EOSINOPHIL % (test code = EO%) 2.6 % 0.3-3.7 N BASOPHIL % (test code = BA%) 0.8 % 0.0-2.0 N NUCLEATED RBC % (test code = 0.0 % 0-0 N NRBC%) NEUTROPHIL # (test code = NT#) 6.35 x10 3/uL 2.0-7.6 N IMMATURE GRANULOCYTE # (test 0.03 x10 3/uL 0.00-0.03 N code = IG#) LYMPHOCYTE # (test code = LY#) 2.00 x10 3/uL 1.0-3.8 N MONOCYTE # (test code = MO#) 1.00 x10 3/uL 0.1-0.8 H EOSINOPHIL # (test code = EO#) 0.25 x10 3/uL 0.0-0.2 H BASOPHIL # (test code = BA#) 0.08 x10 3/uL 0.0-0.2 N NUCLEATED RBC # (test code = 0.00 x10 3/uL 0.0-0.1 N NRBC#) MANUAL DIFF REQUIRED (test code NO = MDIFF) [id number] 19:10:00 Test Item Value Reference Range Interpretation Comments TROPONIN-I < 0.015 ng/mL 0.000-0.045 N Negative: <= (test code = 0.045 Positive: TROPI) >= 0.046 Correl ation with serial results, other cardiac markers andclinical findings is nec essary to determine the clinicalsignifi cance of this result. Results using different metho dologies should not be c omparedto one another as pete titative results may alpesh y by method. CBC W/AUTO [id number] 09:04:00 Test Item Value Reference Range Interpretation Comments WHITE BLOOD CELL (test code = 9.51 x10 3/uL 4.5-11.0 N WBC) RED BLOOD CELL (test code = 4.79 x10 6/uL 4.00-5.60 N RBC) HEMOGLOBIN (test code = HGB) 13.7 g/dL 12.5-16.9 N HEMATOCRIT (test code = HCT) 42.9 % 37.5-50.7 N MEAN CELL VOLUME (test code = 89.6 fL 81.0-99.0 N MCV) MEAN CELL HGB (test code = MCH) 28.6 pg 27.0-33.0 N MEAN CELL HGB CONCETRATION 31.9 g/dL 33.0-37.0 L (test code = MCHC) RED CELL DISTRIBUTION WIDTH CV 14.4 % 11.5-14.5 N (test code = RDW) RED CELL DISTRIBUTION WIDTH SD 47.3 fL 37.0-54.0 N (test code = RDW-SD) PLATELET COUNT (test code = 250 x10 3/uL 150-400 N PLT) MEAN PLATELET VOLUME (test code 11.7 fL 7.0-9.0 H = MPV) NEUTROPHIL % (test code = NT%) 67.2 % 56.0-77.0 N IMMATURE GRANULOCYTE % (test 0.3 % 0.0-2.0 N code = IG%) LYMPHOCYTE % (test code = LY%) 18.7 % 14.0-32.0 N MONOCYTE % (test code = MO%) 10.8 % 4.8-9.0 H EOSINOPHIL % (test code = EO%) 2.4 % 0.3-3.7 N BASOPHIL % (test code = BA%) 0.6 % 0.0-2.0 N NUCLEATED RBC % (test code = 0.0 % 0-0 N NRBC%) NEUTROPHIL # (test code = NT#) 6.38 x10 3/uL 2.0-7.6 N IMMATURE GRANULOCYTE # (test 0.03 x10 3/uL 0.00-0.03 N code = IG#) LYMPHOCYTE # (test code = LY#) 1.78 x10 3/uL 1.0-3.8 N MONOCYTE # (test code = MO#) 1.03 x10 3/uL 0.1-0.8 H EOSINOPHIL # (test code = EO#) 0.23 x10 3/uL 0.0-0.2 H BASOPHIL # (test code = BA#) 0.06 x10 3/uL 0.0-0.2 N NUCLEATED RBC # (test code = 0.00 x10 3/uL 0.0-0.1 N NRBC#) MANUAL DIFF REQUIRED (test code NO = MDIFF) BASIC METABOLIC [id number] 08:15:00 Test Item Value Reference Range Interpretation Comments SODIUM (test code = NA) 140 mEq/L 134-147 N POTASSIUM (test code = 4.3 mEq/L 3.4-5.0 N K) CHLORIDE (test code = 110 mEq/L 100-108 H CL) CARBON DIOXIDE (test 22 mEq/L 21-33 N code = CO2) ANION GAP (test code = 12 0-20 N GAP) GLUCOSE (test code = 92 mg/dL 70-110 N GLU) BLOOD UREA NITROGEN 20 mg/dL 7-18 H (test code = BUN) GLOMERULAR FILTRATION 85.0 105-110 L Units of measure = RATE (test code = GFR) ml/mi n/1.73 m2 CREATININE (test code = 1.0 mg/dL 0.6-1.3 N CREAT) CALCIUM (test code = 9.2 mg/dL 8.0-10.5 N CA) CBC W/AUTO [id number] 08:31:00 Test Item Value Reference Range Interpretation Comments WHITE BLOOD CELL (test code = 12.45 x10 3/uL 4.5-11.0 H WBC) RED BLOOD CELL (test code = 4.92 x10 6/uL 4.00-5.60 N RBC) HEMOGLOBIN (test code = HGB) 13.9 g/dL 12.5-16.9 N HEMATOCRIT (test code = HCT) 45.1 % 37.5-50.7 N MEAN CELL VOLUME (test code = 91.7 fL 81.0-99.0 N MCV) MEAN CELL HGB (test code = 28.3 pg 27.0-33.0 N MCH) MEAN CELL HGB CONCETRATION 30.8 g/dL 33.0-37.0 L (test code = MCHC) RED CELL DISTRIBUTION WIDTH CV 14.5 % 11.5-14.5 N (test code = RDW) RED CELL DISTRIBUTION WIDTH SD 49.2 fL 37.0-54.0 N (test code = RDW-SD) PLATELET COUNT (test code = 281 x10 3/uL 150-400 N PLT) MEAN PLATELET VOLUME (test 11.4 fL 7.0-9.0 H code = MPV) NEUTROPHIL % (test code = NT%) 71.1 % 56.0-77.0 N IMMATURE GRANULOCYTE % (test 0.4 % 0.0-2.0 N code = IG%) LYMPHOCYTE % (test code = LY%) 17.9 % 14.0-32.0 N MONOCYTE % (test code = MO%) 8.0 % 4.8-9.0 N EOSINOPHIL % (test code = EO%) 1.9 % 0.3-3.7 N BASOPHIL % (test code = BA%) 0.7 % 0.0-2.0 N NUCLEATED RBC % (test code = 0.0 % 0-0 N NRBC%) NEUTROPHIL # (test code = NT#) 8.85 x10 3/uL 2.0-7.6 H IMMATURE GRANULOCYTE # (test 0.05 x10 3/uL 0.00-0.03 H code = IG#) LYMPHOCYTE # (test code = LY#) 2.23 x10 3/uL 1.0-3.8 N MONOCYTE # (test code = MO#) 0.99 x10 3/uL 0.1-0.8 H EOSINOPHIL # (test code = EO#) 0.24 x10 3/uL 0.0-0.2 H BASOPHIL # (test code = BA#) 0.09 x10 3/uL 0.0-0.2 N NUCLEATED RBC # (test code = 0.00 x10 3/uL 0.0-0.1 N NRBC#) MANUAL DIFF REQUIRED (test NO code = MDIFF) BASIC METABOLIC [id number] 07:51:00 Test Item Value Reference Range Interpretation Comments SODIUM (test code = NA) 137 mEq/L 134-147 N POTASSIUM (test code = 4.4 mEq/L 3.4-5.0 N K) CHLORIDE (test code = 107 mEq/L 100-108 N CL) CARBON DIOXIDE (test 21 mEq/L 21-33 N code = CO2) ANION GAP (test code = 13 0-20 N GAP) GLUCOSE (test code = 79 mg/dL 70-110 GLU) BLOOD UREA NITROGEN 17 mg/dL 7-18 N (test code = BUN) GLOMERULAR FILTRATION 76.2 105-110 L Units of measure = RATE (test code = GFR) ml/mi n/1.73 m2 CREATININE (test code = 1.1 mg/dL 0.6-1.3 N CREAT) CALCIUM (test code = 9.1 mg/dL 8.0-10.5 N CA) [id number] 18:42:00 Test Item Value Reference Range Interpretation Comments D-DIMER (test < 215 ng/mlFEU <=500 N THROMBOSIS A ND/OR PULMONARY code = EMBOLISM AND [facility] CLINICAL DDIMER) CUT- OFF VALUE FOR EXCLUSION (500 ng/mL FEU) OF THESE CONDIT IONSIS VALIDATED BY [facility] DRAW END HAND OF THE METHOD. A NEGATIVE D-DI ALEJANDRA RESULT WHEN COMBINED W ITH A CLINICALASSESSM ENT OF LOW PRETEST PROBABI LITY HAS BEEN SHOWN TO H AVEA HIGH NEGATIVE PREDIC TIVE VALUE OF DVT OR PE. D -DIMER VALUES >500 ng/ mL FEU ARE NOT DIAGNOSTIC FOR DVT, PEor DIC WITHOU T OTHER CONFIRMATORY TE STS AND APPROPRIATECLIN ICAL EUALUATIONS. - XR CHEST 2 [id number] 12:45:00 FAX: Anita Gore MD [phone] [place]: St: ADM FAX: Lesa Krueger [phone] Name: NAIF MAGANA [facility] : 1985 Age/S: 34/M [address] [place] [address] Unit #: [id number] Loc: G.C144 [place] [address] Phys: Anita Gore MD Acct: [id number] Dis Date: Status: ADM IN PHONE #: [phone] Exam Date: 04/12/2019 1240 FAX #: [phone] Reason: SOB EXAMS: CPT CODE: [id number] XR CHEST 2 V [id number] 2 view chestx- ray performed April 12, 2019 1208 hours. COMPARISON: none. CLINICALHISTORY: SOB. DISCUSSION: 2 views/ films of the chest are submitted. Cardiac stent is noted. Lungs are clear bilaterally. Cardiomediastinal silhouette is normal. Osseous structures are within normal limits. IMPRESSION: No acute cardiopulmonary findings at 1244 Reported and signed by: Thalia Polanco M.D. CC: Anita Gore MD; Lesa Krueger MD Technologist: RT Asuncion(Jamshid) Trnscrd Date/Time/By: 04/12/2019 (1545) : By: LauraNMG Orig Print D/T: S: 04/12/2019 (2877) PAGE 1 Signed ReportBASIC METABOLIC [id number] 03:58:00 Test Item Value Reference Range Interpretation Comments SODIUM (test code = NA) 140 mEq/L 134-147 N POTASSIUM (test code = 3.8 mEq/L 3.4-5.0 N K) CHLORIDE (test code = 107 mEq/L 100-108 N CL) CARBON DIOXIDE (test 26 mEq/L 21-33 N code = CO2) ANION GAP (test code = 11 0-20 N GAP) GLUCOSE (test code = 111 mg/dL 70-110 H GLU) BLOOD UREA NITROGEN 20 mg/dL 7-18 H (test code = BUN) GLOMERULAR FILTRATION 85.0 105-110 L Units of measure = RATE (test code = GFR) ml/mi n/1.73 m2 CREATININE (test code = 1.0 mg/dL 0.6-1.3 N CREAT) CALCIUM (test code = 8.3 mg/dL 8.0-10.5 N CA) [id number] 03:58:00 Test Item Value Reference Range Interpretation Comments TROPONIN-I 0.026 ng/mL 0.000-0.045 N Negative: <= (test code = 0.045 Positive: TROPI) >= 0.046 Correl ation with serial results, other cardiac markers andclin ical findings is necessary to determine the clinicalsignifi cance of this result. Results using different metho dologies should not be c omparedto one another as pete titative results may alpesh y by method. CBC W/AUTO [id number] 03:39:00 Test Item Value Reference Range Interpretation Comments WHITE BLOOD CELL (test code = 10.53 x10 3/uL 4.5-11.0 N WBC) RED BLOOD CELL (test code = 4.44 x10 6/uL 4.00-5.60 N RBC) HEMOGLOBIN (test code = HGB) 12.8 g/dL 12.5-16.9 N HEMATOCRIT (test code = HCT) 40.2 % 37.5-50.7 N MEAN CELL VOLUME (test code = 90.5 fL 81.0-99.0 N MCV) MEAN CELL HGB (test code = 28.8 pg 27.0-33.0 N MCH) MEAN CELL HGB CONCETRATION 31.8 g/dL 33.0-37.0 L (test code = MCHC) RED CELL DISTRIBUTION WIDTH CV 14.7 % 11.5-14.5 H (test code = RDW) RED CELL DISTRIBUTION WIDTH SD 49.1 fL 37.0-54.0 N (test code = RDW-SD) PLATELET COUNT (test code = 280 x10 3/uL 150-400 N PLT) MEAN PLATELET VOLUME (test 10.9 fL 7.0-9.0 H code = MPV) NEUTROPHIL % (test code = NT%) 61.1 % 56.0-77.0 N IMMATURE GRANULOCYTE % (test 0.4 % 0.0-2.0 N code = IG%) LYMPHOCYTE % (test code = LY%) 24.9 % 14.0-32.0 N MONOCYTE % (test code = MO%) 10.9 % 4.8-9.0 H EOSINOPHIL % (test code = EO%) 2.1 % 0.3-3.7 N BASOPHIL % (test code = BA%) 0.6 % 0.0-2.0 N NUCLEATED RBC % (test code = 0.0 % 0-0 N NRBC%) NEUTROPHIL # (test code = NT#) 6.44 x10 3/uL 2.0-7.6 N IMMATURE GRANULOCYTE # (test 0.04 x10 3/uL 0.00-0.03 H code = IG#) LYMPHOCYTE # (test code = LY#) 2.62 x10 3/uL 1.0-3.8 N MONOCYTE # (test code = MO#) 1.15 x10 3/uL 0.1-0.8 H EOSINOPHIL # (test code = EO#) 0.22 x10 3/uL 0.0-0.2 H BASOPHIL # (test code = BA#) 0.06 x10 3/uL 0.0-0.2 N NUCLEATED RBC # (test code = 0.00 x10 3/uL 0.0-0.1 N NRBC#) MANUAL DIFF REQUIRED (test NO code = MDIFF) [id number] 00:14:00 Test Item Value Reference Range Interpretation Comments TROPONIN-I 0.017 ng/mL 0.000-0.045 N Negative: <= (test code = 0.045 Positive: TROPI) >= 0.046 Correl ation with serial results, other cardiac markers andclin ical findings is necessary to determine the clinicalsignifi cance of this result. Results using different metho dologies should not be c omparedto one another as pete titative results may alpesh y by method.
[2021-08-11] MEDS ORDERED: ONDANSETRON 4 MG/2 ML VIAL ONE (14:14)
[2021-08-11] MEDS ORDERED: MORPHINE 4 MG/ML SYR ONE (14:22)
[2021-08-11 14:48] LABS: Absolute Lymphocytes (CBC) 2.1 K/uL (0.7-4.9); Hematocrit 43.3 % (39.6-49.0); Lymphocytes % 20.2 % (15.3-44.8); MPV 9.1 fL (7.6-11.3); RBC Red Blood Cell Count 4.78 M/uL (4.33-5.43)
[2021-08-11] MEDS ORDERED: FENTANYL CITR 100 MCG/2 ML ONE (15:03)
[2021-08-11 15:10] LABS: Albumin 3.9 g/dL (3.4-5.0); Bilirubin Total 0.3 mg/dL (0.2-1.0); Potassium 4.3 mmol/L (3.5-5.1); Protein, Total 7.5 g/dL (6.4-8.2)
--- NOTE | 2021-08-11 15:46 | RAD REPORT ---
EXAM DESCRIPTION: CT - Abdomen Pelvis W Contrast - 08/11/2021 3:30 pm CLINICAL HISTORY: Abdominal pain COMPARISON: none. TECHNIQUE: Computed axial tomography of the abdomen pelvis was obtained. 100 cc Isovue-300 was admin istered intravenously. Oral contrast was not requested which limits evaluation of bowel and appendix All CT scans are performed using dose optimization technique as appropriate and may include automated exposure control or mA/KV adjustment according to patient size. FINDINGS: The liver, spleen, pancreas, adrenal and kidneys appear unremarkable. There is no evidence of diverticulitis. Normal appendix IMPRESSION: No acute abnormality is displayed.
[2021-08-11] MEDS ORDERED: LORazepam 2 MG/ML VIAL ONE (16:33)
[2021-08-11] MEDS ORDERED: DIPHENHYDRAMINE 50 MG/ML VIAL ONE (16:33)
[2021-08-11] MEDS ORDERED: NA CHLORIDE 0.9% 250 ML ONE (16:34)
[2021-08-11] MEDS ORDERED: METOCLOPRAMIDE 10 MG/2mL INJ ONE (16:35)
--- NOTE | 2021-08-11 17:22 | EDPHYS ---
Physician Documentation [facility] Name: Otf Cummins Age: 36 yrs Sex: Male : 1985 Arrival Date: 08/11/2021 Time: 13:44 Bed 12 Private MD: ED Physician Otf Whitt HPI: 08/11 14:06 This 36 yrs old Male presents to ER via Ambulatory with complaints of Hernia. [facility] 14:06 The patient presents with abdominal pain. Onset: The symptoms/episode began/occurred jm gradually, 1 week(s) ago. The symptoms do not radiate. Associated signs and symptoms: Pertinent negatives: diarrhea, vomiting. The symptoms are described as achy, crampy, sharp. Modifying factors: The symptoms are alleviated by nothing, the symptoms are aggravated by nothing. The patient has experienced similar episodes in the past, multiple times. Patient attributes his pain to a hernia that has not been repaired.. Historical: - Allergies: 13:54 Imdur; ll1 13:54 renexa; ll1 - PMHx: 13:54 CAD; Coronary atherosclerosis; GERD; psoriasis; Schizophrenia; ll1 - PSHx: 13:54 heart stents; L arm compartment syndrome repair.; ll1 - Immunization history:: Client reports having NOT received the Covid vaccine. - Social history:: Smoking status: Patient reports the use of cigarette tobacco products, smokes one-half pack cigarettes per day. ROS: 14:06 Constitutional: Negative for fever, chills, and weight loss, Cardiovascular: Negative jm for chest pain, palpitations, and edema, Respiratory: Negative for shortness of breath, cough, wheezing, and pleuritic chest pain. 14:06 Abdomen/GI: Positive for abdominal pain. 14:06 All other systems are negative. Exam: 14:06 Constitutional: This is a well developed, well nourished patient who is awake, alert, jmm and in no acute distress. Head/Face: atraumatic. Eyes: EOMI, no conjunctival erythema appreciated ENT: Moist Mucus Membranes Neck: Trachea midline, Supple Chest/axilla: Normal chest wall appearance and motion. Cardiovascular: Regular rate and rhythm. No edema appreciated Respiratory: Normal respirations, no respiratory distress appreciated 14:06 Back: Normal ROM Skin: General appearance color normal MS/ Extremity: Moves all extremities, no obvious deformities appreciated, no edema noted to the lower extremities Neuro: Awake and alert Psych: Behavior is normal, Mood is normal, Patient is cooperative and pleasant 14:06 Abdomen/GI: Inspection: abdomen appears normal, Bowel sounds: normal, Palpation: soft, moderate abdominal tenderness, in all quadrants. Vital Signs: 13:52 BP 145 / 94; Pulse 78; Resp 17; Temp 98.4; Pulse Ox 100% ; Weight 83.91 kg; Height 5 ll1 ft. 8 in. (172.72 cm); Pain 10/10; 14:00 BP 140 / 99; Pulse 80; Resp 16 S; Pulse Ox 97% on R/A; Pain 10/10; jg9 14:45 BP 131 / 85; Pulse 70; Resp 16 S; Pulse Ox 98% on R/A; Pain 9/10; jg9 15:15 BP 134 / 92; Pulse 71; Resp 12 S; Pulse Ox 95% on R/A; Pain 4/10; jg9 17:10 BP 122 / 99; Pulse 86; Resp 12 S; Pulse Ox 95% ; Pain 5/10; jg9 13:52 Body Mass Index 28.13 (83.91 kg, 172.72 cm) ll1 MDM: 14:06 Patient medically screened. [facility] 17:20 Data reviewed: vital signs, nurses notes. Counseling: I had a detailed discussion with aure the patient and/or guardian regarding: the historical points, exam findings, and any diagnostic results supporting the discharge/admit diagnosis, radiology results, the need for outpatient follow up, to return to the emergency department if symptoms worsen or persist or if there are any questions or concerns that arise at home. 08/11 14:06 Order name: CBC with Diff; Complete Time: 15:15 [facility] 08/11 14:06 Order name: CMP; Complete Time: 15:15 [facility] 08/11 14:06 Order name: Lipase; Complete Time: 15:15 [facility] 08/11 14:09 Order name: CT Abd/Pelvis - IV Contrast Only; Complete Time: 15:53 [facility] 08/11 14:06 Order name: IV Saline Lock; Complete Time: 14:14 [facility] 08/11 14:06 Order name: Labs collected and sent; Complete Time: 14:14 [facility] Administered Medications: 14:14 Drug: Zofran (Ondansetron) 4 mg Route: IVP; Site: right antecubital; jg9 14:25 Follow up: Response: No adverse reaction jg9 14:20 Drug: morphine 4 mg Route: IVP; Infused Over: 4 mins; Site: right antecubital; jg9 14:50 Follow up: Response: No adverse reaction; No change in condition jg9 14:58 Drug: fentaNYL (PF) 50 mcg Route: IVP; Site: right antecubital; jg9 15:22 Follow up: Response: No adverse reaction; Marked relief of symptoms; RASS: Alert and jg9 Calm (0) 16:35 Drug: NS 0.9% 250 ml Route: IV; Rate: bolus; Site: right antecubital; jg9 17:10 Follow up: IV Status: Completed infusion; IV Intake: 250ml jg9 16:36 Drug: Ativan (LORazepam) 1 mg Route: IVP; Site: right antecubital; jg9 17:11 Follow up: Response: No adverse reaction j9 16:37 Drug: Reglan (metoCLOPramide) 20 mg {Note: placed inside 250ml bolus.} Route: IVP; jg9 Site: right antecubital; 17:11 Follow up: Response: No adverse reaction jg9 16:37 Drug: diphenhydrAMINE 12.5 mg Route: IVP; Site: right antecubital; jg9 17:11 Follow up: Response: No adverse reaction jg9 Disposition Summary: 08/11/21 17:21 Discharge Ordered Location: Home [facility] Condition: Stable [facility] Diagnosis - Acute Abdominal Pain [facility] Followup: [facility] - With: Private Physician - When: 2 - 3 days - Reason: Recheck today's complaints, Continuance of care, Re-evaluation by your physician Discharge Instructions: - Discharge Summary Sheet [facility] - Abdominal Pain, Adult [facility] Forms: - Medication Reconciliation Form [facility] - Thank You Letter [facility] - Antibiotic Education [facility] - Prescription Opioid Use [facility] Signatures: Dispatcher [employer] EDGordo Preston PA PA jmm Lewis, Lynsay RN RN ll1 Eryn Lowe RN RN jg9
--- NOTE | 2021-08-11 17:22 | ER ---
Nurse's Notes [facility] Name: Otf Cummins Age: 36 yrs Sex: Male : 1985 Arrival Date: 08/11/2021 Time: 13:44 Bed 12 Private MD: Diagnosis: Acute Abdominal Pain Presentation: 08/11 13:52 Chief complaint: Patient states: Upper abd pain and nausea for 10 days. Believes its ll1 hernia pain. Coronavirus screen: Vaccine status: Patient reports being unvaccinated. Client denies travel out of the [place] in the last 14 days. At this time, the client does not indicate any symptoms associated with coronavirus-19. Ebola Screen: Patient denies travel to an Ebola-affected area in the 21 days before illness onset. Initial Sepsis Screen: Does the patient meet any 2 criteria? No. Patient's initial sepsis screen is negative. Does the patient have a suspected source of infection? Yes: Acute abdominal pain. Risk Assessment: Do you want to hurt yourself or someone else? Patient reports no desire to harm self or others. Onset of symptoms was August 02, 2021. 13:52 Method Of Arrival: Ambulatory ll1 13:52 Acuity: GEORGETTE 3 ll1 Triage Assessment: 13:55 General: Appears uncomfortable, Behavior is calm, cooperative, appropriate for age. ll1 Pain: Complains of pain in abdomen Pain currently is 10 out of 10 on a pain scale. Quality of pain is described as aching, throbbing. GI: Reports upper abdominal pain, nausea. Historical: - Allergies: 13:54 Imdur; ll1 13:54 renexa; ll1 - PMHx: 13:54 CAD; Coronary atherosclerosis; GERD; psoriasis; Schizophrenia; ll1 - PSHx: 13:54 heart stents; L arm compartment syndrome repair.; ll1 - Immunization history:: Client reports having NOT received the Covid vaccine. - Social history:: Smoking status: Patient reports the use of cigarette tobacco products, smokes one-half pack cigarettes per day. Screenin:02 Abuse screen: Denies threats or abuse. Denies injuries from another. Nutritional jg9 screening: homeless. Tuberculosis screening: No symptoms or risk factors identified. Fall Risk None identified. Assessment: 14:02 Reassessment: No changes from previously documented assessment. Patient and/or family jg9 updated on plan of care and expected duration. Pain level reassessed. Patient is alert, oriented x 3, equal unlabored respirations, skin warm/dry/pink. 14:59 Reassessment: No changes from previously documented assessment. Patient and/or family jg9 updated on plan of care and expected duration. Pain level reassessed. Patient is alert, oriented x 3, equal unlabored respirations, skin warm/dry/pink. Patient pain unchanged-medicated. 16:02 Reassessment: food tray provided. jg9 17:11 Reassessment: Patient and/or family updated on plan of care and expected duration. Pain jg9 level reassessed. Patient is alert, oriented x 3, equal unlabored respirations, skin warm/dry/pink. Patient states feeling better. Patient states symptoms have improved. Vital Signs: 13:52 BP 145 / 94; Pulse 78; Resp 17; Temp 98.4; Pulse Ox 100% ; Weight 83.91 kg; Height 5 ll1 ft. 8 in. (172.72 cm); Pain 10/10; 14:00 BP 140 / 99; Pulse 80; Resp 16 S; Pulse Ox 97% on R/A; Pain 10/10; jg9 14:45 BP 131 / 85; Pulse 70; Resp 16 S; Pulse Ox 98% on R/A; Pain 9/10; jg9 15:15 BP 134 / 92; Pulse 71; Resp 12 S; Pulse Ox 95% on R/A; Pain 4/10; jg9 17:10 BP 122 / 99; Pulse 86; Resp 12 S; Pulse Ox 95% ; Pain 5/10; jg9 13:52 Body Mass Index 28.13 (83.91 kg, 172.72 cm) ll1 ED Course: 13:44 Patient arrived in ED. rg4 13:54 Triage completed. ll1 13:55 Arm band placed on. ll1 13:58 Gordo Packer PA is PHCP. [facility] 13:58 Otf Whitt MD is Attending Physician. [facility] 13:59 Patient placed in an exam room, on a stretcher. ll1 14:02 Eryn Lowe, ZAN is Primary Nurse. j9 14:03 Patient has correct armband on for positive identification. Bed in low position. Call jg9 light in reach. Side rails up X 1. 14:13 Inserted saline lock: 22 gauge in right antecubital area, using aseptic technique. jg9 Blood collected. 14:59 No apparent distress. Resting quietly. jg9 15:31 CT Abd/Pelvis - IV Contrast Only In Process Unspecified. EDMS 17:36 No provider procedures requiring assistance completed. jg9 17:36 IV discontinued. jg9 Administered Medications: 14:14 Drug: Zofran (Ondansetron) 4 mg Route: IVP; Site: right antecubital; jg9 14:25 Follow up: Response: No adverse reaction jg9 14:20 Drug: morphine 4 mg Route: IVP; Infused Over: 4 mins; Site: right antecubital; jg9 14:50 Follow up: Response: No adverse reaction; No change in condition jg9 14:58 Drug: fentaNYL (PF) 50 mcg Route: IVP; Site: right antecubital; jg9 15:22 Follow up: Response: No adverse reaction; Marked relief of symptoms; RASS: Alert and jg9 Calm (0) 16:35 Drug: NS 0.9% 250 ml Route: IV; Rate: bolus; Site: right antecubital; jg9 17:10 Follow up: IV Status: Completed infusion; IV Intake: 250ml jg9 16:36 Drug: Ativan (LORazepam) 1 mg Route: IVP; Site: right antecubital; jg9 17:11 Follow up: Response: No adverse reaction jg9 16:37 Drug: Reglan (metoCLOPramide) 20 mg {Note: placed inside 250ml bolus.} Route: IVP; jg9 Site: right antecubital; 17:11 Follow up: Response: No adverse reaction jg9 16:37 Drug: diphenhydrAMINE 12.5 mg Route: IVP; Site: right antecubital; jg9 17:11 Follow up: Response: No adverse reaction jg9 Medication: 14:03 VIS not applicable for this client. jg9 Intake: 17:10 IV: 250ml; Total: 250ml. jg9 Outcome: 17:21 Discharge ordered by . jmm 17:36 Discharged to home ambulatory. jg9 17:36 Condition: stable 17:36 Discharge instructions given to patient, Instructed on discharge instructions, follow up and referral plans. Demonstrated understanding of instructions, follow-up care. 17:37 Patient left the ED. jg9 Signatures: Dispatcher [employer] EDGordo Preston PA PA jmm Garcia, Rubi rg4 Cruz De Jesus, RN RN ll1 Eryn Lowe RN RN jg9 Corrections: (The following items were deleted from the chart) 15:23 15:22 Pain 06/17; jg9 jg9
[2021-08-11 17:44] VITALS: TEMP 98.4
[2021-08-11 17:49] VITALS: O2SAT 95
[2021-08-11 17:51] VITALS: BP 122/99
== END 2021-08-11 17:37 | disposition home or self-care (01) ==
LOC: ER 13:41
DX: R10.9 Unspecified abdominal pain (principal); I25.10 Atherosclerotic heart disease of native coronary artery without angina pectoris; Z95.818 Presence of other cardiac implants and grafts; F17.210 Nicotine dependence, cigarettes, uncomplicated
CPT/HCPCS: 36415; 74177; 80053; 83690; 85025; 96365; 96375; 99284; J1200; J2405; J2765; J3010; J7050